=== PATIENT | female | born 2000 | race Caucasian/White ===

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

== ENCOUNTER 2019-02-02 17:06 | Emergency (ER) | payer OTHER ==
--- NOTE | 2019-02-02 17:31 | ERPHSYRPT ---
- History of Present Illness Time Seen by Provider: 02/02/19 17:20 Source: patient, family Exam Limitations: no limitations Patient Subjective Stated Complaint: Pt began having pain when she breathed about 10 minutes ago and so she rushed to the hospital, reports having pain in medial abdomen just below umbilicus and radiates to the ULQ, Pt is 17 weeks Triage Nursing Assessment: Pt presents holding abdomen and crying, appears to be in pain, tachycardic, all other vitals wnl, rates pain 8/10, pain with palpatation by umbilicus only, bowel sounds heard x4, skin NWD, denies vaginal bleeding Physician History: 19 y/o white female who is 13 weeks with u/s verified single intrauterine fetus presents with sudden onset of abd pain described as sharp, above the umbilicus and radiates to left upper quad. no dysuria. no flank pain. pt has had occass thick watery discharge without odor. pt denies abd trauma. pt denies vaginal bleeding Timing/Duration: today, worse Quality: sharpness, stabbing Onset Location: periumbilical Pain Radiation: other (towards left upper quadrant) Severity of Pain-Max: moderate Severity of Pain-Current: moderate Prior abdominal problems: none Sexual intercourse history: non-contributory Modifying Factors: Improves With: nothing Associated Symptoms: , No nausea, No vomiting, No dysuria, No loss of bladder control, No lower back pain, No vaginal discharge, No vaginal fluid leakage Allergies/Adverse Reactions: No Known Drug Allergies Allergy (Verified 09/22/18 13:01) Home Medications: Vits W-Ca,Fe,FA(<1Mg) [] 1 each PO DAILY 02/02/19 [History] Hx Tetanus, Diphtheria Vaccination/Date Given: Yes Hx Influenza Vaccination/Date Given: Yes (March 2018) Hx Pneumococcal Vaccination/Date Given: No - Review of Systems Constitutional: No Symptoms Eyes: No Symptoms Ears, Nose, & Throat: No Symptoms Respiratory: No Symptoms Cardiac: No Symptoms Abdominal/Gastrointestinal: Abdominal Pain (supraumbilical midline) Genitourinary Symptoms: No Symptoms, No Dysuria, No Hematuria, No Flank Pain, No Vaginal Bleeding, No Vaginal Discharge Musculoskeletal: No Symptoms Skin: No Symptoms Neurological: No Symptoms Psychological: No Symptoms Endocrine: No Symptoms Hematologic/Lymphatic: No Symptoms Immunological/Allergic: No Symptoms All Other Systems: Reviewed and Negative - Past Medical History Pertinent Past Medical History: Yes Neurological History: No Pertinent History ENT History: No Pertinent History Cardiac History: No Pertinent History Respiratory History: Asthma, Pneumonia Endocrine Medical History: No Pertinent History Musculoskeletal History: No Pertinent History GI Medical History: No Pertinent History History: No Pertinent History Psycho-Social History: No Pertinent History Female Reproductive Disorders: No Pertinent History - Past Surgical History Past Surgical History: Yes Neuro Surgical History: No Pertinent History Cardiac: No Pertinent History Respiratory: No Pertinent History Gastrointestinal: No Pertinent History Genitourinary: No Pertinent History Musculoskeletal: No Pertinent History Female Surgical History: No Pertinent History Other Surgical History: TONSILS/ADENOIDS, BILATERAL EAR TUBES - Social History Smoking Status: Never smoker Exposure to second hand smoke: No Drug Use: none Patient Lives Alone: No - Female History Hx Now: Yes Expected Date of Delivery: 08/14/19 - Nursing Vital Signs Nursing Vital Signs: Initial Vital Signs Temperature 97.8 F 02/02/19 17:11 Pulse Rate 101 H 02/02/19 17:11 Blood Pressure 130/60 02/02/19 17:11 O2 Sat by Pulse Oximetry 100 02/02/19 17:11 Pain Scale Pain Intensity 8 - Physical Exam General Appearance: mild distress, alert, anxiety Eye Exam: PERRL/EOMI, eyes nml inspection Ears, Nose, Throat Exam: normal ENT inspection, moist mucous membranes Neck Exam: normal inspection, non-tender, supple, full range of motion Respiratory Exam: normal breath sounds, lungs clear, airway intact, No chest tenderness, No respiratory distress Cardiovascular Exam: regular rate/rhythm, normal heart sounds, normal peripheral pulses Gastrointestinal/Abdomen Exam: soft, normal bowel sounds, tenderness (umbilicus) , No guarding, No rebound Pelvic Exam: not done Rectal Exam: not done Back Exam: normal inspection, normal range of motion, No CVA tenderness, No vertebral tenderness Extremity Exam: normal inspection, normal range of motion, pelvis stable Neurologic Exam: alert, oriented x 3, 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, 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, other (tearful) Skin Exam: normal color, warm, dry Lymphatic Exam: No adenopathy SpO2 Interpretation: normal SpO2: 100 O2 Delivery: Room Air - Course Nursing assessment & vital signs reviewed: Yes Ordered Tests: Active Orders 24 hr Category Date Time Status CULTURE,URINE Stat Lab 02/02/19 17:49 Received UA W/RFX UR CULTURE Stat Lab 02/02/19 17:49 Completed Medication Summary Discontinued Medications Generic Name Dose Route Start Last Admin Trade Name Noe PRRadha Reason Stop Dose Admin Acetaminophen 650 mg 02/02/19 18:30 Tylenol 325 Mg PO 02/02/19 18:31 STAT STA Acetaminophen Confirm 02/02/19 18:33 Tylenol 325 Mg Administered 02/02/19 18:34 Dose 650 mg .ROUTE .STK-MED ONE Ceftriaxone Sodium 1,000 mg 02/02/19 18:31 Rocephin 1000 Mg Inj IM 02/02/19 18:32 STAT ONE Ceftriaxone Sodium Confirm 02/02/19 18:33 Rocephin 1000 Mg Inj Administered 02/02/19 18:34 Dose 1,000 mg .ROUTE .STK-MED ONE Lab/Rad Data: Laboratory Results 02/02/19 Range/Units 17:49 Urine Color SAMANTHA (YELLOW) Urine Appearance CLOUDY (CLEAR) Urine pH 6.0 (5-6) Ur Specific [place] 1.025 (1.005-1.025) Urine Protein NEGATIVE (Negative) Urine Ketones NEGATIVE (NEGATIVE) Urine Blood NEGATIVE (0-5) Alcides/ul Urine Nitrite POSITIVE (NEGATIVE) Urine Bilirubin NEGATIVE (NEGATIVE) Urine Urobilinogen NEGATIVE (0-1) mg/dL Ur Leukocyte Esterase SMALL (NEGATIVE) Urine WBC (Auto) 11-15 (0-5) /HPF Urine RBC (Auto) NONE (0-2) /HPF U Epithel Cells (Auto) RARE (FEW) /HPF Urine Bacteria (Auto) FEW (NEGATIVE) /HPF Urine Mucus (Auto) MANY (NEGATIVE) /HPF Urine Culture Reflexed YES (NO) Urine Glucose NEGATIVE (NEGATIVE) mg/dL - Progress Progress: improved, re-examined Air Movement: good Progress Note: 02/02/19 18:37 pt states pain sig improved without tx. pain now dull in left rib area. Blood Culture(s) Obtained: No Antibiotics given: Yes Counseled pt/family regarding: lab results, diagnosis, need for follow-up - Departure Departure Disposition: Home Clinical Impression: UTI (urinary tract infection) Condition: Stable Critical Care Time: No Referrals: MAGNO LEO MD [Primary Care Provider] - Additional Instructions: drink plenty of fluids. use tylenol for pain. follow up with dr. leo or motor and controls tester tomorrow. return to ED tonight if symptoms recur and does not improve with tylenol Prescriptions: Cephalexin Mh 500 mg [Keflex 500 mg] 500 mg PO TID #21 capsule
[2019-02-02 18:12] LABS: Appearance CLOUDY (CLEAR); Bacteria FEW /HPF (NEGATIVE); Bilirubin NEGATIVE (NEGATIVE); Blood NEGATIVE Ery/ul (0-5); Epithelial Cells RARE /HPF (FEW); Glucose NEGATIVE (NEGATIVE); Ketones NEGATIVE (NEGATIVE); Leukocyte Esterase SMALL (NEGATIVE); Mucus MANY /HPF (NEGATIVE); Nitrite POSITIVE (NEGATIVE); Protein,Urine Dip NEGATIVE (Negative); Specific Gravity 1.025 (1.005-1.025); Urobilinogen NEGATIVE mg/dL (0-1)
[2019-02-02] MEDS ORDERED: TYLENOL 325 MG PO STA (18:30)
[2019-02-02] MEDS ORDERED: Rocephin 1000 MG INJ IM ONE (18:31)
[2019-02-02] MEDS ORDERED: Rocephin 1000 MG INJ ONE (18:33)
[2019-02-02] MEDS ORDERED: TYLENOL 325 MG ONE (18:33)
[2019-02-02 19:11] VITALS: BP 101/68; PULSE 96; O2SAT 98
== END 2019-02-02 19:16 | disposition home or self-care (01) ==
LOC: ED 17:06
DX: N39.0 Urinary tract infection, site not specified (principal)
CPT/HCPCS: 81001; 87077; 87086; 87186; 96372; 99284; J0696; A9270-GY

== ENCOUNTER 2019-12-06 18:49 | Emergency (ER) | payer OTHER ==
[2019-12-06 19:22] VITALS: O2SAT 99
--- NOTE | 2019-12-06 19:28 | ERPHSYRPT ---
- History of Present Illness Time Seen by Provider: 12/06/19 19:15 Source: patient, family Exam Limitations: no limitations Patient Subjective Stated Complaint: pt states a wood door fell on her head. states she did lose consciousness for unknown amt of time. states she has been dizzy and nauseous since then. Triage Nursing Assessment: pt alert and oriented, answers questions approp. respirations nonlabored with lungs cta. pt ambulatory with steady gait noted. skin warm and dry. abrasion noted to lt head with no bleeding ntoed at this time. pupils equal and reactive. bilat upper and lower ext strength equal and wnl. Physician History: This is a 19-year-old white female who approximately 1 hour prior to evaluation was hit by a door that was not attached. Patient unable to give me any specifics. She stated that she did lose consciousness. Patient stated that she was alone. She has felt dizzy and nauseous ever since her injury. Patient has no visual abnormalities. She has not vomited. Occurred: just prior to arrival Severity: mild Head Injury Location: frontal (Left), parietal Method of Injury: direct blow (4) Loss of Consciousness: brief (seconds) (Per patient) Associated Symptoms: nausea, other (Dizzy she is she is), No vomiting Allergies/Adverse Reactions: No Known Drug Allergies Allergy (Verified 09/22/18 13:01) Home Medications: Vits W-Ca,Fe,FA(<1Mg) [] 1 each PO DAILY 02/02/19 [History] Hx Tetanus, Diphtheria Vaccination/Date Given: Yes (2018) Hx Influenza Vaccination/Date Given: Yes Hx Pneumococcal Vaccination/Date Given: No Immunizations Up to Date: Yes Travel Risk - International Travel Have you traveled outside of the country in past 3 weeks: No - Coronavirus Screening Are you exhibiting any of the following symptoms?: No Close contact with a COVID-19 positive Pt in past 14-21 Days: No - Review of Systems Constitutional: No Symptoms Eyes: No Symptoms Ears, Nose, & Throat: No Symptoms Respiratory: No Symptoms Cardiac: No Symptoms Abdominal/Gastrointestinal: Nausea, No Abdominal Pain, No Vomiting, No Diarrhea Genitourinary Symptoms: No Symptoms Musculoskeletal: No Symptoms Skin: No Symptoms Neurological: Dizziness Psychological: No Symptoms Endocrine: No Symptoms Hematologic/Lymphatic: No Symptoms Immunological/Allergic: No Symptoms All Other Systems: Reviewed and Negative - Past Medical History Pertinent Past Medical History: Yes Neurological History: No Pertinent History ENT History: No Pertinent History Cardiac History: No Pertinent History Respiratory History: Asthma, Pneumonia Endocrine Medical History: No Pertinent History Musculoskeletal History: No Pertinent History GI Medical History: No Pertinent History History: No Pertinent History Psycho-Social History: No Pertinent History Female Reproductive Disorders: No Pertinent History - Past Surgical History Past Surgical History: Yes Neuro Surgical History: No Pertinent History Cardiac: No Pertinent History Respiratory: No Pertinent History Gastrointestinal: No Pertinent History Genitourinary: No Pertinent History Musculoskeletal: No Pertinent History Female Surgical History: No Pertinent History Other Surgical History: TONSILS/ADENOIDS, BILATERAL EAR TUBES - Social History Smoking Status: Never smoker Exposure to second hand smoke: No Drug Use: none Patient Lives Alone: Yes - Female History Hx Last Menstrual Period: post - breast feeding Hx Now: No - Nursing Vital Signs Nursing Vital Signs: Initial Vital Signs Temperature 98.0 F 12/06/19 19:07 Pulse Rate 80 12/06/19 19:07 Respiratory Rate 18 12/06/19 19:07 Blood Pressure 118/68 12/06/19 19:07 O2 Sat by Pulse Oximetry 99 12/06/19 19:07 Pain Scale Pain Intensity 8 - Vic Coma Score Best Eye Response ([place]): (4) open spontaneously Best Verbal Response (Vic): (5) oriented Best Motor Response (Vic): (6) obeys commands [place] Total: 15 - Physical Exam General Appearance: no apparent distress Head Injury: tenderness (Mild tenderness at the abrasion site in the frontoparietal region on the left side) Eye Exam: bilateral eye: normal inspection, PERRL, EOMI ENT Exam: airway nml, nml ext.inspection, No evidence of ENT injury Neck Exam: supple, trachea midline, full range of motion, normal alignment, normal inspection Cardiovascular/Respiratory Exam: chest non-tender Gastrointestinal/Abdominal Exam: non tender Pelvic Exam: not done Rectal Exam: not done Extremity Exam: non-tender, normal range of motion, normal inspection Mental Status Exam: alert, oriented x 3, 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 Exam: normal hearing, normal speech, PERRL, tongue midline Coordination/Gait Exam: normal finger to nose, normal gait, normal cerebellar function Motor/Sensory Exam: no motor deficit, no sensory deficit, no pronator drift Skin Exam: abrasion (Frontoparietal region left side) SpO2 Interpretation: normal SpO2: 99 O2 Delivery: Room Air - Course Nursing assessment & vital signs reviewed: Yes Ordered Tests: Active Orders 24 hr Category Date Time Status HEAD WITHOUT CONTRAST [CT] Stat Exams 12/06/19 19:18 Taken - Progress Progress: unchanged, re-examined Progress Note: 12/06/19 20:05 CAT scan of the head reveals no acute intracranial abnormality Counseled pt/family regarding: diagnosis, need for follow-up, rad results - Departure Departure Disposition: Home Clinical Impression: Head injury, Scalp abrasion Condition: Stable Critical Care Time: No Referrals: MAGNO TIRADO MD [Primary Care Provider] - Additional Instructions: Use Tylenol for pain. Keep your abrasion site clean with soap and water. May apply antibiotic ointment of choice to area daily after washing with soap and water. Follow-up with your primary care physician for persistent symptoms. Return to the emergency department if your symptoms worsen. Forms: Work/School Release Form
[2019-12-06] MEDS ORDERED: TYLENOL 325 MG ONE (20:09)
[2019-12-06] MEDS ORDERED: TYLENOL 325 MG PO STA (20:09)
[2019-12-06 20:33] VITALS: BP 124/68; PULSE 74
--- NOTE | 2019-12-07 08:58 | XRAY ---
Exam: CT of the head without IV contrast from 12/06/2019. CTDI: 53.92 mGy Comparison: CT of the head without IV contrast from 11/05/2018. Indication: 19-year-old female with head injury. Technique: Non-IV contrast axial images were obtained through the brain. Reconstructed coronal and sagittal images were created and reviewed. Findings: The ventricles appear unremarkable. No focal mass effect or midline shift is seen. The jefferson matter-white matter interfaces appear unremarkable. There is no evidence of acute intracranial bleed or abnormal extra-axial fluid collection. Some beam hardening artifact is seen overlying the lateral aspect of the left temporal lobe representing no change (i.e. insignificant). No abnormal low-attenuation brain lesions are seen to suggest infarct or focal edema. The cortical sulci and basilar cisterns appear unremarkable. The calvarium of the skull appears intact without evidence of fracture. Some minimal scattered mucosal thickening is seen within the ethmoid sinuses which in retrospect represents no significant change. No air-fluid levels are seen. The mastoids reveal normal aerated air cells without effusion. The middle ear cavities appear grossly unremarkable. Impression: 1. No acute intracranial bleed or other acute intracranial process is seen, no change from 11/05/2018. 2. Minimal scattered mucosal thickening is seen within the ethmoid sinus complex, no change in retrospect. No paranasal sinus air-fluid levels are seen.
== END 2019-12-06 20:28 | disposition home or self-care (01) ==
LOC: ED 18:49
DX: S00.01XA Abrasion of scalp, initial encounter (principal); S00.03XA Contusion of scalp, initial encounter; W22.8XXA Striking against or struck by other objects, initial encounter; R11.0 Nausea; R42 Dizziness and giddiness
CPT/HCPCS: 70450; 99283; A9270-GY

== ENCOUNTER 2020-08-23 05:47 | Day surgery (SDC) | payer OTHER ==
[2020-08-23] MEDS ORDERED: Lactated Ringers 1,000 ML IV SCH (06:00)
[2020-08-23] MEDS ORDERED: DIPRIVAN 200 MG/20 ML IV ONE ×3 (08:04→08:22)
[2020-08-23] MEDS ORDERED: Versed 2 MG/2 ML Injection ONE (08:04)
[2020-08-23] MEDS ORDERED: Xylocaine-Mpf 2% 5 Ml Vial ONE (08:13)
[2020-08-23 09:03] VITALS: O2SAT 100
--- NOTE | 2020-08-23 11:07 | OP ---
SURGERY DATE/TIME: 08/23/2020 0803 PREOPERATIVE DIAGNOSIS: Iron deficiency anemia. POSTOPERATIVE DIAGNOSES: 1) Normal EGD. 2) Normal colon. PROCEDURES: 1) EGD. 2) Colonoscopy. SURGEON: Robert Foss M.D. ANESTHESIA: MAC by Isak Quesada CRNA. ESTIMATED BLOOD LOSS: None. SPECIMENS: None. DESCRIPTION OF PROCEDURE: After informed written consent was obtained, the patient was taken to the endoscopy suite. She was placed in left lateral decubitus position and a bite block inserted. Anesthesia was titrated to desired level of consciousness. The endoscope was inserted in the posterior oropharynx and under direct visualization the esophagus was traversed. The esophageal mucosa had a normal appearance. There were no abnormalities of the gastroesophageal junction. Upon entering the stomach there was normal rugated gastric mucosa free of any lesions or defects. The pylorus was traversed and the first and second portions of the duodenum were within normal limits. Upon withdrawal all mucosal structures were carefully inspected and noted to be within normal limits. The scope was removed and the scopes were switched. Digital rectal exam was performed and showed normal sphincter tone and no internal lesions. The scope was inserted in the rectum and sequentially the entire colonic mucosa was traversed. The level of the cecum was reached and verified with direct visualization of the ileocecal valve. Upon withdrawal careful mucosal inspection revealed no gross abnormalities. Retroflexion was performed prior to withdrawal and showed no internal lesions. The scope was removed. The patient was transferred to the recovery room in good condition.
[2020-08-23 11:16] VITALS: BP 112/67; PULSE 90
== END 2020-08-23 09:50 | disposition home or self-care (01) ==
LOC: SDC 05:47
PROVIDERS: ATTEND Family Medicine
DX: D50.9 Iron deficiency anemia, unspecified (principal)
CPT/HCPCS: 84703; J2250; J2704

== ENCOUNTER 2021-01-05 16:02 | Emergency (ER) | payer OTHER ==
[2021-01-05 16:25] VITALS: O2SAT 100
[2021-01-05 16:39] LABS: Absolute Neutrophil Ct (ANC) 3.58 (1.4-6.9); BASOPHIL % 0.5 % (0.0-0.4); Basophil (Absolute #) 0.04 (0-0.4); Eosinophil (Absolute #) 0.22 (0-0.5); Hematocrit 43.5 % (35-47); Hemoglobin 13.9 gm/dl (12.0-16.0); Lymphocyte (Absolute #) 3.13 (1.0-4.6); Lymphocytes % 42.1 % (24.0-44.0); Mean Cell Volume 82.2 fl (78-100); Mean Corpuscular Hemoglobin 26.3 pg (26-32); Mean Platelet Volume 9.6 fl (7.5-11.0); Monocyte (Absolute #) 0.47 (0.0-1.3); Monocytes % 6.3 % (0.0-12.0); Neutrophil % 48.1 % (36.0-66.0); Platelet Count 217 K/mm3 (150-450); Red Blood Count 5.29 M/mm3 (4.1-5.4); Red Cell Distribution Width 15.7 % (11.5-14.0); White Blood Count 7.4 K/mm3 (4.0-10.5)
[2021-01-05 17:07] LABS: ALBUMIN 4.6 g/dL (3.5-5.0); ALKALINE PHOSPHATASE 74 U/L (38-126); BLOOD UREA NITROGEN 10 mg/dL (7-17); CHLORIDE 101 mmol/L (98-107); Calcium 9.4 mg/dL (8.4-10.2); Carbon Dioxide 28 mmol/L (22-30); Creatinine 1 0.78 mg/dL (0.52-1.04); EST GLOMERULAR FILTRATION RATE > 60.0 ML/MIN; Glucose 91 mg/dL (74-106); HCG, Quantitative (Inhouse) 61.38 mIU/ml; SGOT/AST 24 U/L (14-36); SGPT/ALT 14 U/L (0-35); SODIUM 139 mmol/L (137-145); Total Protein 7.4 g/dL (6.3-8.2)
[2021-01-05 17:11] VITALS: BP 116/79
--- NOTE | 2021-01-05 17:45 | ERPHSYRPT ---
- History of Present Illness Time Seen by Provider: 01/05/21 16:50 Patient Subjective Stated Complaint: abd cramping, heavy vag bleeding x 1 hr Triage Nursing Assessment: pt to ED c/o vaginal bleeding and abd cramping x 1 hr. pt reports soaking through after pad, and pants within 1 hr. blood also reported to have ran down her legs bilaterally. reports "pouring" when she stood up. rates 3/10 pain now in cramping sensation. Physician History: Patient is a 20-year-old 3 para 2 Ab0 with a positive home test this morning who presents with vaginal bleeding and cramping. She did soak through her clothes. Timing/Duration: today Activites at Onset: none Quality: cramping Onset Location: suprapubic Pain Radiation: none Severity of Pain-Max: moderate Severity of Pain-Current: moderate Prior abdominal problems: none Modifying Factors: Improves With: nothing Associated Symptoms: denies symptoms Allergies/Adverse Reactions: No Known Drug Allergies Allergy (Verified 11/06/20 08:48) Home Medications: Amlodipine Besylate 5 mg [Norvasc 5 mg] 5 mg PO DAILY 08/23/20 [History] Etonogestrel/Ethinyl Estradiol [Nuvaring Vaginal Ring] 1 each VG UD 08/23/20 [History] Ferrous Sulfate 325 mg PO TID 08/23/20 [History] Buspirone HCl 5 mg [Buspar 5 mg] 5 mg PO BID 01/05/21 [History] Escitalopram Oxalate 10 mg [Lexapro 10 MG] 10 mg PO DAILY 01/05/21 [History] Hx Tetanus, Diphtheria Vaccination/Date Given: Yes (2018) Hx Influenza Vaccination/Date Given: Yes Hx Pneumococcal Vaccination/Date Given: No Travel Risk - International Travel Have you traveled outside of the country in past 3 weeks: No - Coronavirus Screening Are you exhibiting any of the following symptoms?: No Close contact with a COVID-19 positive Pt in past 14-21 Days: No - Vaccine Status Have you recieved a Covid-19 vaccination: Yes Yacht Hand: Moderna - Vaccination Dates Date of 2cond Vaccination (if applicable): August - Review of Systems Constitutional: No Fever, No Chills Eyes: No Symptoms Ears, Nose, & Throat: No Symptoms Respiratory: No Cough, No Dyspnea Cardiac: No Chest Pain, No Edema, No Syncope Abdominal/Gastrointestinal: No Abdominal Pain, No Nausea, No Vomiting, No Di arrhea Genitourinary Symptoms: Vaginal Bleeding, No Dysuria Musculoskeletal: No Back Pain, No Neck Pain Skin: No Rash Neurological: No Dizziness, No Focal Weakness, No Sensory Changes Psychological: No Symptoms Endocrine: No Symptoms All Other Systems: Reviewed and Negative - Past Medical History Pertinent Past Medical History: Yes Neurological History: No Pertinent History ENT History: No Pertinent History Cardiac History: No Pertinent History Respiratory History: Asthma, Pneumonia Endocrine Medical History: No Pertinent History Musculoskeletal History: No Pertinent History GI Medical History: No Pertinent History History: No Pertinent History Psycho-Social History: Anxiety Female Reproductive Disorders: No Pertinent History Other Medical History: raynauds, - Past Surgical History Past Surgical History: Yes Neuro Surgical History: No Pertinent History Cardiac: No Pertinent History Respiratory: No Pertinent History Gastrointestinal: No Pertinent History Genitourinary: No Pertinent History Musculoskeletal: No Pertinent History Female Surgical History: No Pertinent History Other Surgical History: TONSILS/ADENOIDS, BILATERAL EAR TUBES - Social History Smoking Status: Never smoker Exposure to second hand smoke: No Drug Use: none Patient Lives Alone: No - Female History Hx Last Menstrual Period: 2 months ago Hx Now: Yes (+ test today) - Nursing Vital Signs Nursing Vital Signs: Initial Vital Signs Temperature 98.2 F 01/05/21 16:14 Pulse Rate 94 H 01/05/21 16:14 Respiratory Rate 18 01/05/21 16:14 Blood Pressure 129/76 01/05/21 16:14 O2 Sat by Pulse Oximetry 100 01/05/21 16:14 Pain Scale Pain Intensity 3 - Physical Exam General Appearance: mild distress, alert Eye Exam: PERRL/EOMI, eyes nml inspection Ears, Nose, Throat Exam: normal ENT inspection, TMs normal, pharynx normal, moist mucous membranes Neck Exam: normal inspection, non-tender, supple, full range of motion Respiratory Exam: normal breath sounds, lungs clear, No respiratory distress Cardiovascular Exam: regular rate/rhythm, normal heart sounds, normal peripheral pulses Gastrointestinal/Abdomen Exam: soft, No tenderness, No mass Pelvic Exam: vaginal bleeding (Dental bleeding at the time of the pelvic exam cervix is long and closed uterus is normal size.), No adnexal mass, No mass Back Exam: normal inspection, normal range of motion, No CVA tenderness, No vertebral tenderness Extremity Exam: normal inspection, normal range of motion, pelvis stable Neurologic Exam: alert, oriented x 3, 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, 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, normal mood/affect, sensation nml, No motor deficits Skin Exam: normal color, warm, dry Lymphatic Exam: No adenopathy SpO2: 100 - Course Nursing assessment & vital signs reviewed: Yes Ordered Tests: Active Orders 24 hr Category Date Time Status Heart Tones-ED STAT Care 01/05/21 16:22 Active CBC W DIFF Stat Lab 01/05/21 16:28 Completed CMP Stat Lab 01/05/21 16:28 Completed HCG, Quantitative (Inhouse) Stat Lab 01/05/21 16:28 Completed Lab/Rad Data: Laboratory Result Diagrams 01/05/21 16:28 01/05/21 16:28 Laboratory Results 01/05/21 01/05/21 Range/Units 16:28 16:28 WBC 7.4 (4.0-10.5) K/mm3 RBC 5.29 (4.1-5.4) M/mm3 Hgb 13.9 (12.0-16.0) gm/dl Hct 43.5 (35-47) % MCV 82.2 (78-100) fl MCH 26.3 (26-32) pg MCHC 32.0 (32-36) g/dl RDW 15.7 H (11.5-14.0) % Plt Count 217 (150-450) K/mm3 MPV 9.6 (7.5-11.0) fl Gran % 48.1 (36.0-66.0) % Eos # (Auto) 0.22 (0-0.5) Absolute Lymphs (auto) 3.13 (1.0-4.6) Absolute Monos (auto) 0.47 (0.0-1.3) Lymphocytes % 42.1 (24.0-44.0) % Monocytes % 6.3 (0.0-12.0) % Eosinophils % 3.0 (0.00-5.0) % Basophils % 0.5 (0.0-0.4) % Absolute Granulocytes 3.58 (1.4-6.9) Basophils # 0.04 (0-0.4) Sodium 139 (137-145) mmol/L Potassium 4.0 (3.5-5.1) mmol/L Chloride 101 (98-107) mmol/L Carbon Dioxide 28 (22-30) mmol/L Anion Gap 13.0 (5-15) MEQ/L BUN 10 (7-17) mg/dL Creatinine 0.78 (0.52-1.04) mg/dL Estimated GFR > 60.0 ML/MIN Glucose 91 (74-106) mg/dL Calcium 9.4 (8.4-10.2) mg/dL Total Bilirubin 0.40 (0.2-1.3) mg/dL AST 24 (14-36) U/L ALT 14 (0-35) U/L Alkaline Phosphatase 74 (38-126) U/L Serum Total Protein 7.4 (6.3-8.2) g/dL Albumin 4.6 (3.5-5.0) g/dL Beta HCG, Quant 61.38 mIU/ml - Progress Air Movement: good Blood Culture(s) Obtained: No Antibiotics given: No - Departure Departure Disposition: Home Clinical Impression: Early stage of Condition: Stable Critical Care Time: No Referrals: MAGNO TIRADO MD [Primary Care Provider] - Instructions: Threatened Miscarriage (DC) Additional Instructions: Additional instructions are for the patient to follow-up with her primary care or DIRECTOR OF WEB MARKETING in 72 hours for repeat hCG
[2021-01-05 17:53] VITALS: PULSE 79
== END 2021-01-05 18:03 | disposition home or self-care (01) ==
LOC: ED 16:02
DX: Z33.1 Pregnant state, incidental (principal); N93.9 Abnormal uterine and vaginal bleeding, unspecified
CPT/HCPCS: 36415; 80053; 84702; 85025; 99284

== ENCOUNTER 2021-01-18 16:05 | Emergency (ER) | payer OTHER ==
--- NOTE | 2021-01-18 16:34 | ERPHSYRPT ---
- History of Present Illness Time Seen by Provider: 01/18/21 16:25 Source: patient Exam Limitations: no limitations Patient Subjective Stated Complaint: C/O sharp, cramping pain to lower abdomen/pelvic area. States had heavy vaginal bleeding earlier today at work soaking a pad with bright red blood in a little over an hours time. Bleeding has slowed at this time and is now just spotting. Denies any clots in the bleeding. She is pregant but is unsure of how far along she is/due date. Triage Nursing Assessment: Abdomen is soft. No changes in pain level when palpated. Urine is clear when voiding upon arrival. Sitting in bed using touch screen phone during intake assessment. Denies sexual intercourse for the past few weeks. Physician History: This is a 21-year-old white female who is but is unsure of the exact dates. She thinks she might be 11 weeks along. Patient is being followed by Dr. Tirado. Patient had significant vaginal bleeding earlier this morning and now it is vaginal spotting. However there is some cramping pain present. She had no flank pain. She has no dysuria or hematuria. She did not have sexual intercourse last night. She has had no nausea vomiting or diarrhea. She has no chest pain or shortness of breath. Patient has been having beta hCGs performed and she had 1 performed yesterday and is over 10,000. Her serial beta hCGs have been rising. Timing/Duration: today Activites at Onset: none Quality: cramping Onset Location: suprapubic Pain Radiation: none Severity of Pain-Max: mild Severity of Pain-Current: mild Prior abdominal problems: none Sexual intercourse history: non-contributory Modifying Factors: Improves With: nothing Associated Symptoms: vaginal discharge (Bleeding/spotting) Allergies/Adverse Reactions: No Known Drug Allergies Allergy (Verified 01/18/21 16:20) Home Medications: Amlodipine Besylate 5 mg [Norvasc 5 mg] 5 mg PO DAILY 08/23/20 [History] Ferrous Sulfate 325 mg PO TID 08/23/20 [History] Vits W-Ca,Fe,FA(<1Mg) [] 1 tablet PO DAILY 01/18/21 [History] Hx Tetanus, Diphtheria Vaccination/Date Given: Yes (2019) Hx Influenza Vaccination/Date Given: Yes Hx Pneumococcal Vaccination/Date Given: No Travel Risk - International Travel Have you traveled outside of the country in past 3 weeks: No - Coronavirus Screening Are you exhibiting any of the following symptoms?: No Close contact with a COVID-19 positive Pt in past 14-21 Days: No - Vaccine Status Have you recieved a Covid-19 vaccination: No 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 - Vaccination Dates Date of 2cond Vaccination (if applicable): August - Review of Systems Constitutional: No Symptoms Eyes: No Symptoms Ears, Nose, & Throat: No Symptoms Respiratory: No Symptoms Cardiac: No Symptoms Abdominal/Gastrointestinal: Abdominal Pain (Suprapubic crampingmild) Genitourinary Symptoms: No Symptoms, Vaginal Bleeding Musculoskeletal: No Symptoms Skin: No Symptoms Neurological: No Symptoms Psychological: No Symptoms Endocrine: No Symptoms Hematologic/Lymphatic: No Symptoms Immunological/Allergic: No Symptoms All Other Systems: Reviewed and Negative - Past Medical History Pertinent Past Medical History: Yes Neurological History: No Pertinent History ENT History: No Pertinent History Cardiac History: No Pertinent History Respiratory History: Asthma, Pneumonia Endocrine Medical History: No Pertinent History Musculoskeletal History: No Pertinent History GI Medical History: No Pertinent History History: No Pertinent History Psycho-Social History: Anxiety Female Reproductive Disorders: No Pertinent History Other Medical History: raynauds, - Past Surgical History Past Surgical History: Yes Neuro Surgical History: No Pertinent History Cardiac: No Pertinent History Respiratory: No Pertinent History Gastrointestinal: No Pertinent History Genitourinary: No Pertinent History Musculoskeletal: No Pertinent History Female Surgical History: No Pertinent History Other Surgical History: TONSILS/ADENOIDS, BILATERAL EAR TUBES - Social History Smoking Status: Never smoker Exposure to second hand smoke: No Drug Use: none Patient Lives Alone: No - Female History Hx Last Menstrual Period: November 05, 2020 Hx Now: Yes Gestational Age: unknown - Nursing Vital Signs Nursing Vital Signs: Initial Vital Signs Temperature 98.5 F 01/18/21 16:12 Pulse Rate 110 H 01/18/21 16:12 Respiratory Rate 18 01/18/21 16:12 Blood Pressure 131/83 01/18/21 16:12 O2 Sat by Pulse Oximetry 99 01/18/21 16:12 Pain Scale Pain Intensity 8 - Physical Exam General Appearance: no apparent distress, alert, anxiety, thin Eye Exam: PERRL/EOMI, eyes nml inspection Ears, Nose, Throat Exam: normal ENT inspection, moist mucous membranes Neck Exam: normal inspection, non-tender, supple, full range of motion Respiratory Exam: normal breath sounds, lungs clear, airway intact, No chest tenderness, No respiratory distress Cardiovascular Exam: tachycardia Gastrointestinal/Abdomen Exam: soft, normal bowel sounds, tenderness (Mild suprapubic), No guarding, No rebound Pelvic Exam: not done Rectal Exam: not done Back Exam: normal inspection, normal range of motion, No CVA tenderness Extremity Exam: normal inspection, normal range of motion Neurologic Exam: alert, oriented x 3, cooperative, mechanical maintenance engineer II-XII nml as tested, normal mood/affect, nml cerebellar function, nml station & gait, sensation nml Skin Exam: normal color, warm, dry Lymphatic Exam: No adenopathy SpO2 Interpretation: normal SpO2: 99 O2 Delivery: Room Air - Course Nursing assessment & vital signs reviewed: Yes Ordered Tests: Active Orders 24 hr Category Date Time Status OB <14 WKS 1ST GESTATION [US] Stat Exams 01/18/21 16:35 Taken UA W/RFX UR CULTURE Stat Lab 01/18/21 16:38 Completed Lab/Rad Data: Laboratory Results 01/18/21 Range/Units 16:38 Urine Color COLORLESS (YELLOW) Urine Appearance CLEAR (CLEAR) Urine pH 7.0 (5-6) Ur Specific [place] 1.003 (1.005-1.025) Urine Protein NEGATIVE (Negative) Urine Ketones NEGATIVE (NEGATIVE) Urine Blood NEGATIVE (0-5) Alcides/ul Urine Nitrite NEGATIVE (NEGATIVE) Urine Bilirubin NEGATIVE (NEGATIVE) Urine Urobilinogen NEGATIVE (0-1) mg/dL Ur Leukocyte Esterase SMALL (NEGATIVE) Urine WBC (Auto) 3-5 (0-5) /HPF Urine RBC (Auto) NONE SEEN (0-2) /HPF U Epithel Cells (Auto) NONE (FEW) /HPF Urine Bacteria (Auto) FEW (NEGATIVE) /HPF Urine Culture Reflexed NO (NO) Urine Glucose NEGATIVE (NEGATIVE) mg/dL - Progress Progress: improved, re-examined Air Movement: good Progress Note: 01/18/21 17:14 I reviewed the transvaginal ultrasound report that was performed on 01/10/2021. It showed thickened endometrial cavity with echogenic fluid collection. Possible blood products versus retained products of conception. No pole or heart tones appreciated on that study. 01/18/21 17:28 This patient had an first trimester obstetric ultrasound performed. She is at 5 weeks and 5 days. There is a gestational sac but there is a subchorionic hemorrhage that was significant and encompasses approximately half of the gestational sac. I contacted the patient's primary care physician, Dr. Tirado. He recommends pelvic/bedrest and to call his office on 01/21/2021. I told the patient to also call her water treatment plant engineer on 01/21/2021. She was told to return to the emergency department if she has having more significant bleeding vaginally. Blood Culture(s) Obtained: No Antibiotics given: No Discussed with : Kel Counseled pt/family regarding: lab results, diagnosis, rad results - Departure Departure Disposition: Home Clinical Impression: Vaginal bleeding, UTI (urinary tract infection), Subchorionic hemorrhage in first trimester Condition: Stable Critical Care Time: No Referrals: MAGNO TIRADO MD [Primary Care Provider] - Additional Instructions: Drink plenty of fluids. Take medication as prescribed. Follow-up with your primary doctor for further management. Prescriptions: Cephalexin Mh 500 mg [Keflex 500 mg] 500 mg PO TID #21 capsule
[2021-01-18 17:07] LABS: Appearance CLEAR (CLEAR); Bacteria FEW /HPF (NEGATIVE); Bilirubin NEGATIVE (NEGATIVE); Blood NEGATIVE Ery/ul (0-5); Glucose NEGATIVE (NEGATIVE); Ketones NEGATIVE (NEGATIVE); Leukocyte Esterase SMALL (NEGATIVE); Nitrite NEGATIVE (NEGATIVE); Protein,Urine Dip NEGATIVE (Negative); RBC NONE SEEN /HPF (0-2); Specific Gravity 1.003 (1.005-1.025); Urobilinogen NEGATIVE mg/dL (0-1)
[2021-01-18 17:34] VITALS: BP 124/72
[2021-01-18 17:53] VITALS: PULSE 116; O2SAT 97
--- NOTE | 2021-01-18 21:39 | XRAY ---
Indication: Vaginal bleeding and cramping. Two-dimensional transabdominal early OB ultrasound performed. Comparison: January 10, 2021. There is now a single intrauterine gestational sac with presence of a single pole and yolk sac. Mean sac diameter is 1.06 cm corresponding to 5 weeks 5 days. Mean crown-rump length is 0.23 cm corresponding to 5 weeks 5 days. No heart tones. There is also a new large subchorionic hemorrhage measuring at least 5 x 1 cm. Right ovary sonographically unremarkable. Left ovary not seen. No suspicious adnexal mass or free fluid. Impression: Single intrauterine measuring 5 weeks 5 days. Expected date confinement is September 15, 2021. No heart tones, possibly early . Correlate with serial beta-hCG and follow-up sonogram. Also large subchorionic hemorrhage. Comment: Preliminary interpretation was made by KAYLA. No critical discrepancy.
== END 2021-01-18 17:55 | disposition home or self-care (01) ==
LOC: ED 16:05
DX: O23.41 Unspecified infection of urinary tract in pregnancy, first trimester (principal); O20.9 Hemorrhage in early pregnancy, unspecified; Z3A.11 11 weeks gestation of pregnancy; R10.30 Lower abdominal pain, unspecified
CPT/HCPCS: 76801; 81001; 99283

== ENCOUNTER 2021-01-27 22:33 | Emergency (ER) | payer OTHER ==
[2021-01-27] MEDS ORDERED: Sodium Chloride 0.9% 1000 ML 1,000 ML IV STA (22:55)
[2021-01-27] MEDS ORDERED: TYLENOL 325 MG PO ONE (22:55)
--- NOTE | 2021-01-27 23:09 | ERPHSYRPT ---
- History of Present Illness Time Seen by Provider: 01/27/21 22:38 Source: patient Exam Limitations: no limitations Patient Subjective Stated Complaint: C/O cramping and heavy, active vaginal bleeding. States vomited X 3 today and last vomited driving to ER Triage Nursing Assessment: No clots in bright red vaginal bleeding. Bowel sounds X 4 quads. 7 weeks . Denies any sexual intercourse for approx the last month. Denies dysuria and flank pain. Physician History: 21 years old 3 para 2 at almost 7 weeks gestation presented in the ER with sudden onset pelvic cramping and vaginal bleeding bright red to dark color almost 1-1/2-hour prior to arrival. She went through multiple pads. Pain is dull cramping mild to moderate intensity without any significant aggravating or relieving factors. Some radiation to low back. Patient was recently seen and had UTI but not started taking antibiotics yet. Timing/Duration: hour(s) (1.5), sudden, worse Activites at Onset: rest Quality: cramping Onset Location: pelvic pain Pain Radiation: none Severity of Pain-Max: moderate Severity of Pain-Current: mild Prior abdominal problems: none Sexual intercourse history: non-contributory Modifying Factors: Improves With: nothing Associated Symptoms: denies symptoms Allergies/Adverse Reactions: No Known Drug Allergies Allergy (Verified 01/18/21 16:20) Home Medications: Vits W-Ca,Fe,FA(<1Mg) [] 1 tablet PO DAILY 01/18/21 [History] Buspirone HCl 5 mg [Buspar 5 mg] 10 mg PO BID 01/27/21 [History] Hx Tetanus, Diphtheria Vaccination/Date Given: Yes Hx Influenza Vaccination/Date Given: No Hx Pneumococcal Vaccination/Date Given: No Travel Risk - International Travel Have you traveled outside of the country in past 3 weeks: No - Coronavirus Screening Are you exhibiting any of the following symptoms?: No Close contact with a COVID-19 positive Pt in past 14-21 Days: No - Vaccine Status Have you recieved a Covid-19 vaccination: No 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 - Vaccination Dates Date of 2cond Vaccination (if applicable): August - Review of Systems Constitutional: No Symptoms Eyes: No Symptoms Ears, Nose, & Throat: No Symptoms Respiratory: No Symptoms Cardiac: No Symptoms Abdominal/Gastrointestinal: Abdominal Pain Genitourinary Symptoms: Vaginal Bleeding Musculoskeletal: No Symptoms Skin: No Symptoms Neurological: No Symptoms Psychological: No Symptoms Endocrine: No Symptoms Hematologic/Lymphatic: No Symptoms Immunological/Allergic: No Symptoms - Past Medical History Pertinent Past Medical History: Yes Neurological History: No Pertinent History ENT History: No Pertinent History Cardiac History: No Pertinent History Respiratory History: Asthma, Pneumonia Endocrine Medical History: No Pertinent History Musculoskeletal History: No Pertinent History GI Medical History: No Pertinent History History: No Pertinent History Psycho-Social History: Anxiety Female Reproductive Disorders: No Pertinent History Other Medical History: raynauds, - Past Surgical History Past Surgical History: Yes Neuro Surgical History: No Pertinent History Cardiac: No Pertinent History Respiratory: No Pertinent History Gastrointestinal: No Pertinent History Genitourinary: No Pertinent History Musculoskeletal: No Pertinent History Female Surgical History: No Pertinent History Other Surgical History: TONSILS/ADENOIDS, BILATERAL EAR TUBES - Social History Smoking Status: Never smoker Exposure to second hand smoke: No Drug Use: none Patient Lives Alone: No - Female History Hx Last Menstrual Period: Unknown Hx Now: Yes Expected Date of Delivery: 09/15/20 Gestational Age: 7 weeks - Nursing Vital Signs Nursing Vital Signs: Initial Vital Signs Temperature 98.7 F 01/27/21 22:42 Pulse Rate 96 H 01/27/21 22:42 Respiratory Rate 20 01/27/21 22:42 Blood Pressure 121/70 01/27/21 22:42 O2 Sat by Pulse Oximetry 98 01/27/21 22:42 Pain Scale Pain Intensity 5 - Physical Exam General Appearance: no apparent distress, alert Eye Exam: eyes nml inspection Ears, Nose, Throat Exam: normal ENT inspection Neck Exam: normal inspection, full range of motion Respiratory Exam: normal breath sounds, lungs clear Cardiovascular Exam: regular rate/rhythm, normal heart sounds Gastrointestinal/Abdomen Exam: soft, normal bowel sounds, No tenderness Pelvic Exam: not done Back Exam: normal inspection, normal range of motion, No CVA tenderness Extremity Exam: normal inspection, normal range of motion Neurologic Exam: alert, oriented x 3, cooperative Skin Exam: normal color SpO2 Interpretation: normal SpO2: 98 O2 Delivery: Room Air Ordered Tests: Active Orders 24 hr Category Date Time Status IV Insertion STAT Care 01/27/21 22:55 Active NPO (ED) STAT Care 01/27/21 22:55 Active OB FOLLOW UP PER FETUS [US] Stat Exams 01/27/21 22:55 Taken CBC W DIFF Stat Lab 01/27/21 23:02 Completed CMP Stat Lab 01/27/21 23:02 Completed CULTURE,URINE Stat Lab 01/28/21 00:58 Received HCG, Quantitative (Inhouse) Stat Lab 01/27/21 23:02 Completed UA W/RFX UR CULTURE Stat Lab 01/28/21 00:58 Completed Medication Summary Discontinued Medications Generic Name Dose Route Start Last Admin Trade Name Noe PRN Reason Stop Dose Admin Acetaminophen 975 mg 01/27/21 22:55 01/28/21 00:02 Tylenol 325 Mg PO 01/27/21 22:56 975 mg STAT ONE Administration Acetaminophen Confirm 01/27/21 23:27 Tylenol 325 Mg Administered 01/27/21 23:28 Dose 975 mg .ROUTE .STK-MED ONE Cephalexin HCl 500 mg 01/28/21 01:18 08 01:20 Keflex 500 Mg PO 01/28/21 01:19 500 mg STAT ONE Administration Cephalexin HCl Confirm 01/28/21 01:19 Keflex 500 Mg Administered 01/28/21 01:20 Dose 500 mg .ROUTE .STK-MED ONE Sodium Chloride 1,000 mls @ 999 mls/hr 01/27/21 22:55 01/28/21 00:21 Sodium Chloride 0.9% 1000 Ml IV 01/27/21 23:55 999 mls/hr .Q1H1M STA Administration Sodium Chloride Confirm 01/27/21 23:28 Sodium Chloride 0.9% 1000 Ml Administered 01/27/21 23:29 Dose 1,000 mls @ ud .ROUTE .STK-MED ONE Sodium Chloride Confirm 01/28/21 00:19 Sodium Chloride 0.9% 1000 Ml Administered 01/28/21 00:20 Dose 1,000 mls @ ud .ROUTE .STK-MED ONE Morphine Sulfate 2 mg 01/28/21 00:47 Morphine Sulfate 2 Mg Inj IV 01/28/21 00:48 STAT ONE Ondansetron HCl 4 mg 01/28/21 00:47 01/28/21 01:01 Zofran 4 Mg/2 Ml Vial IV 01/28/21 00:48 4 mg STAT ONE Administration Ondansetron HCl Confirm 01/28/21 00:59 Zofran 4 Mg/2 Ml Vial Administered 01/28/21 01:00 Dose 4 mg .ROUTE .STK-MED ONE Lab/Rad Data: Laboratory Result Diagrams 01/27/21 23:02 01/27/21 23:02 Laboratory Results 01/28/21 01/27/21 01/27/21 Range/Units 00:58 23:02 23:02 WBC (4.0-10.5) K/mm3 RBC (4.1-5.4) M/mm3 Hgb (12.0-16.0) gm/dl Hct (35-47) % MCV (78-100) fl MCH (26-32) pg MCHC (32-36) g/dl RDW (11.5-14.0) % Plt Count (150-450) K/mm3 MPV (7.5-11.0) fl Gran % (36.0-66.0) % Eos # (Auto) (0-0.5) Absolute Lymphs (auto) (1.0-4.6) Absolute Monos (auto) (0.0-1.3) Lymphocytes % (24.0-44.0) % Monocytes % (0.0-12.0) % Eosinophils % (0.00-5.0) % Basophils % (0.0-0.4) % Absolute Granulocytes (1.4-6.9) Basophils # (0-0.4) Sodium 138 (137-145) mmol/L Potassium 3.9 (3.5-5.1) mmol/L Chloride 104 (98-107) mmol/L Carbon Dioxide 23 (22-30) mmol/L Anion Gap 14.5 (5-15) MEQ/L BUN 11 (7-17) mg/dL Creatinine 0.56 (0.52-1.04) mg/dL Estimated GFR > 60.0 ML/MIN Glucose 96 (74-106) mg/dL Calcium 9.5 (8.4-10.2) mg/dL Total Bilirubin < 0.10 L (0.2-1.3) mg/dL AST 22 (14-36) U/L ALT 12 (0-35) U/L Alkaline Phosphatase 66 (38-126) U/L Serum Total Protein 6.9 (6.3-8.2) g/dL Albumin 4.2 (3.5-5.0) g/dL Beta HCG, Quant 69729 mIU/ml Urine Color STRAW (YELLOW) Urine Appearance CLEAR (CLEAR) Urine pH 7.0 (5-6) Ur Specific [place] 1.005 (1.005-1.025) Urine Protein NEGATIVE (Negative) Urine Ketones NEGATIVE (NEGATIVE) Urine Blood LARGE (0-5) Alcides/ul Urine Nitrite NEGATIVE (NEGATIVE) Urine Bilirubin NEGATIVE (NEGATIVE) Urine Urobilinogen NEGATIVE (0-1) mg/dL Ur Leukocyte Esterase TRACE (NEGATIVE) Urine WBC (Auto) 6-10 (0-5) /HPF Urine RBC (Auto) NONE (0-2) /HPF U Epithel Cells (Auto) NONE (FEW) /HPF Urine Bacteria (Auto) NONE (NEGATIVE) /HPF Urine Culture Reflexed YES (NO) Urine Glucose NEGATIVE (NEGATIVE) mg/dL ABO Group O Rh Factor POSITIVE Antibody Screen NEGATIVE (NEGATIVE) 01/27/21 Range/Units 23:02 WBC 9.1 (4.0-10.5) K/mm3 RBC 4.57 (4.1-5.4) M/mm3 Hgb 12.2 (12.0-16.0) gm/dl Hct 37.9 (35-47) % MCV 82.9 (78-100) fl MCH 26.7 (26-32) pg MCHC 32.2 (32-36) g/dl RDW 14.0 (11.5-14.0) % Plt Count 221 (150-450) K/mm3 MPV 9.7 (7.5-11.0) fl Gran % 52.1 (36.0-66.0) % Eos # (Auto) 0.24 (0-0.5) Absolute Lymphs (auto) 3.34 (1.0-4.6) Absolute Monos (auto) 0.76 (0.0-1.3) Lymphocytes % 36.7 (24.0-44.0) % Monocytes % 8.4 (0.0-12.0) % Eosinophils % 2.6 (0.00-5.0) % Basophils % 0.2 (0.0-0.4) % Absolute Granulocytes 4.73 (1.4-6.9) Basophils # 0.02 (0-0.4) Sodium (137-145) mmol/L Potassium (3.5-5.1) mmol/L Chloride (98-107) mmol/L Carbon Dioxide (22-30) mmol/L Anion Gap (5-15) MEQ/L BUN (7-17) mg/dL Creatinine (0.52-1.04) mg/dL Estimated GFR ML/MIN Glucose (74-106) mg/dL Calcium (8.4-10.2) mg/dL Total Bilirubin (0.2-1.3) mg/dL AST (14-36) U/L ALT (0-35) U/L Alkaline Phosphatase (38-126) U/L Serum Total Protein (6.3-8.2) g/dL Albumin (3.5-5.0) g/dL Beta HCG, Quant mIU/ml Urine Color (YELLOW) Urine Appearance (CLEAR) Urine pH (5-6) Ur Specific [place] (1.005-1.025) Urine Protein (Negative) Urine Ketones (NEGATIVE) Urine Blood (0-5) Alcides/ul Urine Nitrite (NEGATIVE) Urine Bilirubin (NEGATIVE) Urine Urobilinogen (0-1) mg/dL Ur Leukocyte Esterase (NEGATIVE) Urine WBC (Auto) (0-5) /HPF Urine RBC (Auto) (0-2) /HPF U Epithel Cells (Auto) (FEW) /HPF Urine Bacteria (Auto) (NEGATIVE) /HPF Urine Culture Reflexed (NO) Urine Glucose (NEGATIVE) mg/dL ABO Group Rh Factor Antibody Screen (NEGATIVE) - Progress Progress: improved, re-examined Air Movement: good Progress Note: 01/28/21 00:15 21 years old is evaluated for onset vaginal bleeding. She is given fluids and Tylenol, reevaluation feeling better. She has a stable H&H. I have obtained ul trasound transvaginal, preliminary report viable 7 weeks 0 days, heart tone 145 with thick subchorionic hemorrhage. Discussed with Dr. Silver primary OB for the patient, reviewed history, ultrasound findings and current management, recommended pelvic rest, increase hydration and outpatient follow-up with him as scheduled. 01/28/21 01:21 She is given Keflex for UTI and advised to picker tender helper her prescription which is already at the pharmacy from her previous ER visit. Plan discussed with patient who understand and agrees with it. Discussed signs symptoms of worsening needing return to ER which he seems understanding. Stable for discharge. Blood Culture(s) Obtained: No Antibiotics given: No Discussed with DrRory: Fabrice Counseled pt/family regarding: lab results, diagnosis, need for follow-up, rad results - Departure Departure Disposition: Home Clinical Impression: Vaginal bleeding Subchorionic hemorrhage in first trimester Qualifiers: Fetus number: single or unspecified fetus Qualified Code(s): O41.8X10 - Other specified disorders of amniotic fluid and membranes, first trimester, not applicable or unspecified; O46.8X1 - Other antepartum hemorrhage, first trimester UTI in Qualifiers: Trimester: first trimester Qualified Code(s): O23.41 - Unspecified infection of urinary tract in , first trimester Condition: Stable Critical Care Time: No Referrals: MAGNO TIRADO MD [Primary Care Provider] - Follow Up with PCP/3 days MEGAN VELAZCO DO [ACTIVE STAFF] - (As scheduled) Additional Instructions: Pelvic rest, no sexual activity. Increase hydration. Take Tylenol as needed. Follow-up with primary OB for reevaluation. Return to ER for worsening vaginal bleeding, passing products of conception, worsening cramping etc. picker tender helper your prescription of antibiotic from pharmacy for UTI.
[2021-01-27] MEDS ORDERED: TYLENOL 325 MG ONE (23:27)
[2021-01-27] MEDS ORDERED: Sodium Chloride 0.9% 1000 ML 1,000 ML ONE (23:28)
[2021-01-27 23:35] LABS: Absolute Neutrophil Ct (ANC) 4.73 (1.4-6.9); BASOPHIL % 0.2 % (0.0-0.4); Basophil (Absolute #) 0.02 (0-0.4); Eosinophil % 2.6 % (0.00-5.0); Eosinophil (Absolute #) 0.24 (0-0.5); Hematocrit 37.9 % (35-47); Hemoglobin 12.2 gm/dl (12.0-16.0); Lymphocyte (Absolute #) 3.34 (1.0-4.6); Lymphocytes % 36.7 % (24.0-44.0); Mean Cell Volume 82.9 fl (78-100); Mean Corpuscular Hemoglobin 26.7 pg (26-32); Mean Corpuscular Hgb Concent. 32.2 g/dl (32-36); Mean Platelet Volume 9.7 fl (7.5-11.0); Monocyte (Absolute #) 0.76 (0.0-1.3); Monocytes % 8.4 % (0.0-12.0); Neutrophil % 52.1 % (36.0-66.0); Platelet Count 221 K/mm3 (150-450); Red Blood Count 4.57 M/mm3 (4.1-5.4); White Blood Count 9.1 K/mm3 (4.0-10.5)
[2021-01-28 00:05] LABS: ALBUMIN 4.2 g/dL (3.5-5.0); ALKALINE PHOSPHATASE 66 U/L (38-126); ANION GAP 14.5 MEQ/L (5-15); BILIRUBIN,TOTAL < 0.10 mg/dL (0.2-1.3); BLOOD UREA NITROGEN 11 mg/dL (7-17); CHLORIDE 104 mmol/L (98-107); Calcium 9.5 mg/dL (8.4-10.2); Carbon Dioxide 23 mmol/L (22-30); Creatinine 1 0.56 mg/dL (0.52-1.04); EST GLOMERULAR FILTRATION RATE > 60.0 ML/MIN; Glucose 96 mg/dL (74-106); Potassium 3.9 mmol/L (3.5-5.1); SGOT/AST 22 U/L (14-36); SGPT/ALT 12 U/L (0-35); SODIUM 138 mmol/L (137-145); Total Protein 6.9 g/dL (6.3-8.2)
[2021-01-28 00:12] LABS: ABO TYPING O; Antibody Screen NEGATIVE (NEGATIVE); RH TYPING POSITIVE
[2021-01-28] MEDS ORDERED: Sodium Chloride 0.9% 1000 ML 0 ML ONE (00:19)
[2021-01-28 00:30] LABS: HCG, Quantitative (Inhouse) 51708 mIU/ml
[2021-01-28] MEDS ORDERED: MORPHINE SULFATE 2 MG INJ IV ONE (00:47)
[2021-01-28] MEDS ORDERED: Zofran 4 MG/2 ML VIAL IV ONE (00:47)
[2021-01-28] MEDS ORDERED: Zofran 4 MG/2 ML VIAL ONE (00:59)
[2021-01-28 01:17] LABS: Appearance CLEAR (CLEAR); Bilirubin NEGATIVE (NEGATIVE); Blood LARGE Ery/ul (0-5); Glucose NEGATIVE (NEGATIVE); Ketones NEGATIVE (NEGATIVE); Leukocyte Esterase TRACE (NEGATIVE); Nitrite NEGATIVE (NEGATIVE); Protein,Urine Dip NEGATIVE (Negative); Specific Gravity 1.005 (1.005-1.025); Urobilinogen NEGATIVE mg/dL (0-1)
[2021-01-28] MEDS ORDERED: KEFLEX 500 MG PO ONE (01:18)
[2021-01-28] MEDS ORDERED: KEFLEX 500 MG ONE (01:19)
[2021-01-28 01:27] VITALS: BP 116/69; PULSE 88; O2SAT 100
--- NOTE | 2021-01-28 09:05 | XRAY ---
Indication: Heavy bleeding. History subchorionic hemorrhage. Two-dimensional transvaginal early OB ultrasound performed. Comparison: December 25, 2020. Again there is a single intrauterine with mean crown-rump length measuring 0.96 cm corresponding to 7 weeks 0 days. heart rate 142 BPM. Large subchorionic hemorrhage now appears heterogeneous in echogenicity, possible clots. Cervix is closed. Right ovary sonographically unremarkable. Left ovary not seen. No suspicious adnexal mass or free fluid. Impression: Again single viable intrauterine measuring 7 weeks 0 days. There has been normal progression of with large heterogeneous subchorionic hemorrhage, possibly clots. Comment: Preliminary report was given to the ordering clinician.
== END 2021-01-28 01:32 | disposition home or self-care (01) ==
LOC: ED 22:33
DX: O41.8X10 Other specified disorders of amniotic fluid and membranes, first trimester, not applicable or unspecified (principal); O23.41 Unspecified infection of urinary tract in pregnancy, first trimester; Z3A.01 Less than 8 weeks gestation of pregnancy
CPT/HCPCS: 36000; 36415; 76816; 80053; 81001; 84702; 85025; 86850; 86900; 86901; 87086; 96360; 96374; 99284; J2405; A9270-GY

== ENCOUNTER 2021-04-11 13:16 | Emergency (ER) | payer OTHER ==
[2021-04-11] MEDS ORDERED: Sodium Chloride 0.9% 1000 ML 1,000 ML IV STA (13:52)
[2021-04-11] MEDS ORDERED: TYLENOL 325 MG PO ONE (13:52)
--- NOTE | 2021-04-11 13:59 | ERPHSYRPT ---
- History of Present Illness Time Seen by Provider: 04/11/21 13:40 Source: patient Exam Limitations: no limitations Patient Subjective Stated Complaint: Vaginal bleeding Triage Nursing Assessment: Patient ambulated back to ED and transferred self to bed. Patient A+O x3. Patient's skin pink, warm and dry. Patient states she was laying in bed when she had a pain in the lower abdomen/groin area and felt and gush. Patient went to bathroom and noted a large amount of bright red blood. Patient is 18 weeks pregant. Patient complains of lower abdomen/ groin pain a constant pressure 8/10. Physician History: Patient is a 21-year-old female presents to our ED for evaluation of vaginal bleeding. Patient is a currently 18 weeks states she was at home resting in bed when she felt an acute sharp pain in her pelvis. Patient then felt a gush of blood from her vagina. Patient went to the bathroom and observed bright red blood. Pain is constant. No associated trauma. No fever. No nausea or vomiting. Symptoms are mild to moderate in intensity. No specific worsening improving factors. Patient is otherwise healthy. Her SURGEON ASSISTANT physician is Dr. Alejandro. Patient voices no other complaints concerns at this time. Timing/Duration: today Severity: moderate Modifying Factors: Improves With: nothing Associated Symptoms: denies symptoms Allergies/Adverse Reactions: No Known Drug Allergies Allergy (Verified 04/11/21 13:28) Home Medications: Vits W-Ca,Fe,FA(<1Mg) [] 1 tablet PO DAILY 01/18/21 [History] Hx Tetanus, Diphtheria Vaccination/Date Given: Yes Hx Influenza Vaccination/Date Given: No Hx Pneumococcal Vaccination/Date Given: No Immunizations Up to Date: Yes Travel Risk - International Travel Have you traveled outside of the country in past 3 weeks: No - Coronavirus Screening Are you exhibiting any of the following symptoms?: No Close contact with a COVID-19 positive Pt in past 14-21 Days: No - Vaccine Status Have you recieved a Covid-19 vaccination: Yes 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: [employer] - Vaccination Dates Date of 2cond Vaccination (if applicable): August - Review of Systems Constitutional: No Symptoms, No Fever, No Chills Eyes: No Symptoms Ears, Nose, & Throat: No Symptoms Respiratory: No Symptoms, No Cough, No Dyspnea Cardiac: No Symptoms, No Chest Pain, No Edema, No Syncope Abdominal/Gastrointestinal: No Symptoms, No Abdominal Pain, No Nausea, No Vomiting, No Diarrhea Genitourinary Symptoms: No Symptoms, No Dysuria Musculoskeletal: No Symptoms, No Back Pain, No Neck Pain Skin: No Symptoms, No Rash Neurological: No Symptoms, No Dizziness, No Focal Weakness, No Sensory Changes Psychological: No Symptoms Endocrine: No Symptoms Hematologic/Lymphatic: No Symptoms Immunological/Allergic: No Symptoms All Other Systems: Reviewed and Negative - Past Medical History Pertinent Past Medical History: Yes Neurological History: No Pertinent History ENT History: No Pertinent History Cardiac History: No Pertinent History Respiratory History: Asthma, Pneumonia Endocrine Medical History: No Pertinent History Musculoskeletal History: No Pertinent History GI Medical History: No Pertinent History History: No Pertinent History Psycho-Social History: Anxiety Female Reproductive Disorders: No Pertinent History Other Medical History: raynauds, - Past Surgical History Past Surgical History: Yes Neuro Surgical History: No Pertinent History Cardiac: No Pertinent History Respiratory: No Pertinent History Gastrointestinal: No Pertinent History Genitourinary: No Pertinent History Musculoskeletal: No Pertinent History Female Surgical History: No Pertinent History Other Surgical History: TONSILS/ADENOIDS, BILATERAL EAR TUBES - Social History Smoking Status: Never smoker Exposure to second hand smoke: No Drug Use: none Patient Lives Alone: No - Female History Hx Last Menstrual Period: October 2020 Hx Now: Yes Expected Date of Delivery: 09/09/21 - Nursing Vital Signs Nursing Vital Signs: Initial Vital Signs Temperature 98.0 F 04/11/21 13:30 Pulse Rate 92 H 04/11/21 13:30 Respiratory Rate 18 04/11/21 13:30 Blood Pressure 112/67 04/11/21 13:30 O2 Sat by Pulse Oximetry 99 04/11/21 13:30 Pain Scale Pain Intensity 8 - Physical Exam General Appearance: no apparent distress, alert Eye Exam: PERRL/EOMI, eyes nml inspection Ears, Nose, Throat Exam: normal ENT inspection, TMs normal, pharynx normal, moist mucous membranes Neck Exam: normal inspection, non-tender, supple, full range of motion Respiratory Exam: normal breath sounds, lungs clear, No respiratory distress Cardiovascular Exam: regular rate/rhythm, normal heart sounds, normal peripheral pulses Gastrointestinal/Abdomen Exam: soft, normal bowel sounds, No tenderness, No mass Pelvic Exam: normal external exam, adnexal tenderness, No cervical motion tenderness (Slight right adnexal tenderness. No mass palpated. No CMT.), No vaginal bleeding (Obvious vaginal bleeding. Cervical os is closed.) Back Exam: normal inspection, normal range of motion, No CVA tenderness, No vertebral tenderness Extremity Exam: normal inspection, normal range of motion, pelvis stable Neurologic Exam: alert, oriented x 3, cooperative, normal mood/affect, nml cere bellar function, nml station & gait, sensation nml, No motor deficits Skin Exam: normal color, warm, dry, No rash Lymphatic Exam: No adenopathy SpO2: 99 - Course Nursing assessment & vital signs reviewed: Yes - Radiology Exams Pelvis X-ray Interpretation: Teleradiologist Report (Limited OB ultrasound demonstrates single viable intrauterine with heart rate of 167. Anterior placenta without abruption or previa. Cervix is closed measuring 4.4 cm in length.) Ordered Tests: Active Orders 24 hr Category Date Time Status IV Insertion STAT Care 04/11/21 13:52 Active OB >14 WKS 1st GESTATION [US] Stat Exams 04/11/21 13:55 Completed CBC W DIFF Stat Lab 04/11/21 14:10 Completed CMP Stat Lab 04/11/21 14:10 Completed HCG, Quantitative (Inhouse) Stat Lab 04/11/21 14:10 Received UA W/RFX UR CULTURE Stat Lab 04/11/21 13:59 Completed Wet Prep Stat Lab 04/11/21 14:13 Completed Medication Summary Discontinued Medications Generic Name Dose Route Start Last Admin Trade Name Joeq PRN Reason Stop Dose Admin Acetaminophen 975 mg 04/11/21 13:52 04/11/21 14:16 Acetaminophen 325 Mg Tablet PO 04/11/21 13:53 975 mg STAT ONE Administration Acetaminophen Confirm 04/11/21 14:15 Acetaminophen 325 Mg Tablet Administered 04/11/21 14:16 Dose 975 mg .ROUTE .STK-MED ONE Sodium Chloride 1,000 mls @ 999 mls/hr 04/11/21 13:52 04/11/21 15:20 Sodium Chloride 0.9% 1000 Ml IV 04/11/21 14:52 Infused .Q1H1M STA Infusion Sodium Chloride Confirm 04/11/21 14:15 Sodium Chloride 0.9% 1000 Ml Administered 04/11/21 14:16 Dose 1,000 mls @ ud .ROUTE .STK-MED ONE Lab/Rad Data: Laboratory Result Diagrams 04/11/21 14:10 04/11/21 14:10 Laboratory Results 04/11/21 04/11/21 04/11/21 Range/Units 14:13 14:10 14:10 WBC (4.0-10.5) K/mm3 RBC (4.1-5.4) M/mm3 Hgb (12.0-16.0) gm/dl Hct (35-47) % MCV (78-100) fl MCH (26-32) pg MCHC (32-36) g/dl RDW (11.5-14.0) % Plt Count (150-450) K/mm3 MPV (7.5-11.0) fl Gran % (36.0-66.0) % Eos # (Auto) (0-0.5) Absolute Lymphs (auto) (1.0-4.6) Absolute Monos (auto) (0.0-1.3) Lymphocytes % (24.0-44.0) % Monocytes % (0.0-12.0) % Eosinophils % (0.00-5.0) % Basophils % (0.0-0.4) % Absolute Granulocytes (1.4-6.9) Basophils # (0-0.4) Sodium 138 (137-145) mmol/L Potassium 3.9 (3.5-5.1) mmol/L Chloride 105 (98-107) mmol/L Carbon Dioxide 23 (22-30) mmol/L Anion Gap 14.7 (5-15) MEQ/L BUN 8 (7-17) mg/dL Creatinine 0.55 (0.52-1.04) mg/dL Estimated GFR > 60.0 ML/MIN Glucose 87 (74-106) mg/dL Calcium 8.9 (8.4-10.2) mg/dL Total Bilirubin 0.30 (0.2-1.3) mg/dL AST 24 (14-36) U/L ALT 9 (0-35) U/L Alkaline Phosphatase 58 (38-126) U/L Serum Total Protein 6.9 (6.3-8.2) g/dL Albumin 4.0 (3.5-5.0) g/dL Urine Color (YELLOW) Urine Appearance (CLEAR) Urine pH (5-6) Ur Specific [place] (1.005-1.025) Urine Protein (Negative) Urine Ketones (NEGATIVE) Urine Blood (0-5) Alcides/ul Urine Nitrite (NEGATIVE) Urine Bilirubin (NEGATIVE) Urine Urobilinogen (0-1) mg/dL Ur Leukocyte Esterase (NEGATIVE) Urine WBC (Auto) (0-5) /HPF Urine RBC (Auto) (0-2) /HPF U Epithel Cells (Auto) (FEW) /HPF Urine Bacteria (Auto) (NEGATIVE) /HPF Urine Mucus (Auto) (NEGATIVE) /HPF Urine Sperm (Auto) (NEGATIVE) /HPF Urine Culture Reflexed (NO) Urine Glucose (NEGATIVE) mg/dL WBC (Wet Prep) Moderate RBC (Wet Prep) Rare Epi Cells (Wet Prep) Moderate Bacteria (Wet Prep) Rare Clue Cells (Wet Prep) None Seen Trichomonas (Wet Prep) None Seen Budding Yeast (Wet Prp) None Seen Chlamydia DNA Probe (NEGATIVE) N.gonorrhoeae DNA Probe (NEGATIVE) ABO Group O Rh Factor POSITIVE Antibody Screen NEGATIVE (NEGATIVE) 04/11/21 04/11/21 04/11/21 Range/Units 14:10 13:59 13:52 WBC 8.8 (4.0-10.5) K/mm3 RBC 4.42 (4.1-5.4) M/mm3 Hgb 12.0 (12.0-16.0) gm/dl Hct 37.3 (35-47) % MCV 84.4 (78-100) fl MCH 27.1 (26-32) pg MCHC 32.2 (32-36) g/dl RDW 13.1 (11.5-14.0) % Plt Count 216 (150-450) K/mm3 MPV 9.6 (7.5-11.0) fl Gran % 70.0 H (36.0-66.0) % Eos # (Auto) 0.22 (0-0.5) Absolute Lymphs (auto) 1.79 (1.0-4.6) Absolute Monos (auto) 0.61 (0.0-1.3) Lymphocytes % 20.4 L (24.0-44.0) % Monocytes % 6.9 (0.0-12.0) % Eosinophils % 2.5 (0.00-5.0) % Basophils % 0.2 (0.0-0.4) % Absolute Granulocytes 6.15 (1.4-6.9) Basophils # 0.02 (0-0.4) Sodium (137-145) mmol/L Potassium (3.5-5.1) mmol/L Chloride (98-107) mmol/L Carbon Dioxide (22-30) mmol/L Anion Gap (5-15) MEQ/L BUN (7-17) mg/dL Creatinine (0.52-1.04) mg/dL Estimated GFR ML/MIN Glucose (74-106) mg/dL Calcium (8.4-10.2) mg/dL Total Bilirubin (0.2-1.3) mg/dL AST (14-36) U/L ALT (0-35) U/L Alkaline Phosphatase (38-126) U/L Serum Total Protein (6.3-8.2) g/dL Albumin (3.5-5.0) g/dL Urine Color YELLOW (YELLOW) Urine Appearance CLEAR (CLEAR) Urine pH 7.0 (5-6) Ur Specific [place] 1.012 (1.005-1.025) Urine Protein NEGATIVE (Negative) Urine Ketones NEGATIVE (NEGATIVE) Urine Blood NEGATIVE (0-5) Alcides/ul Urine Nitrite NEGATIVE (NEGATIVE) Urine Bilirubin NEGATIVE (NEGATIVE) Urine Urobilinogen NEGATIVE (0-1) mg/dL Ur Leukocyte Esterase TRACE (NEGATIVE) Urine WBC (Auto) 3-5 (0-5) /HPF Urine RBC (Auto) 0-2 (0-2) /HPF U Epithel Cells (Auto) NONE (FEW) /HPF Urine Bacteria (Auto) RARE (NEGATIVE) /HPF Urine Mucus (Auto) SLIGHT (NEGATIVE) /HPF Urine Sperm (Auto) PRESENT (NEGATIVE) /HPF Urine Culture Reflexed NO (NO) Urine Glucose NEGATIVE (NEGATIVE) mg/dL WBC (Wet Prep) RBC (Wet Prep) Epi Cells (Wet Prep) Bacteria (Wet Prep) Clue Cells (Wet Prep) Trichomonas (Wet Prep) Budding Yeast (Wet Prp) Chlamydia DNA Probe NOT DETECTED (NEGATIVE) N.gonorrhoeae DNA Probe NOT DETECTED (NEGATIVE) ABO Group Rh Factor Antibody Screen (NEGATIVE) - Progress Progress: improved Progress Note: Patient reassessed. Pain improved but not completely resolved. We advised additional pain medication but patient declined. Patient states that she will self treat with [id number] Tylenol as needed. OB ultrasound shows viable fetus. No placenta previa or abruption. Patient is Rh+. No indication for R hoGam at this time. Laboratory work-up essentially nonremarkable. Pelvic exam shows a closed os. This was confirmed on the ultrasound as well. GC chlamydia negative. Wet prep negative as well. Vital stable. Patient states is ready for discharge. No indication for further work-up at this time. Will discharge home. Patient agrees to follow-up with primary care doctor within 48 hours for reevaluation. UA negative for UTI. Portions of this note were created with voice recognition technology. There may be grammatical, spelling, punctuation or sound alike errors 04/11/21 16:30 - Departure Departure Disposition: Home Clinical Impression: Threatened , Pelvic pain Condition: Stable Critical Care Time: No Referrals: MAGNO TIRADO MD [Primary Care Provider] - Additional Instructions: Discharge/Care Plan INGRID KELLY was seen on 04/11/21 in the Emergency Room. The patient was counseled regarding Diagnosis,Lab results, Imaging studies, need for follow up and when to return to the Emergency Room. Prescriptions given: Discharge Note I have spoken with the patient and/or caregivers. I have explained the patient's condition, diagnosis and treatment plan based on the information available to me at this time. I have answered the patient's and/or caregiver's questions and a ddressed any concerns. The patient and/or caregivers have as good understanding of the patient's diagnosis, condition and treatment plan as can be expected at this point. The vital signs have been stable. The patient's condition is stable and appropriate for discharge from the emergency department. The patient will pursue further outpatient evaluation with the primary care physician or other designated or consulting physician as outlined in the discharge instructions. The patient and/or caregivers are agreeable to this plan of care and follow-up instructions have been explained in detail. The patient and/or caregivers have received these instruction. The patient/and or caregivers are aware that any significant change in condition or worsening of symptoms should prompt an immediate return to this or the closest emergency department or call 911.
[2021-04-11] MEDS ORDERED: Sodium Chloride 0.9% 1000 ML 1,000 ML ONE (14:15)
[2021-04-11] MEDS ORDERED: TYLENOL 325 MG ONE (14:15)
[2021-04-11 14:16] LABS: Appearance CLEAR (CLEAR); Bacteria RARE /HPF (NEGATIVE); Bilirubin NEGATIVE (NEGATIVE); Blood NEGATIVE Ery/ul (0-5); Glucose NEGATIVE (NEGATIVE); Ketones NEGATIVE (NEGATIVE); Leukocyte Esterase TRACE (NEGATIVE); Mucus SLIGHT /HPF (NEGATIVE); Nitrite NEGATIVE (NEGATIVE); Protein,Urine Dip NEGATIVE (Negative); RBC 0-2 /HPF (0-2); Specific Gravity 1.012 (1.005-1.025); Sperm PRESENT /HPF (NEGATIVE); Urobilinogen NEGATIVE mg/dL (0-1)
[2021-04-11 14:24] LABS: Absolute Neutrophil Ct (ANC) 6.15 (1.4-6.9); BASOPHIL % 0.2 % (0.0-0.4); Basophil (Absolute #) 0.02 (0-0.4); Eosinophil % 2.5 % (0.00-5.0); Eosinophil (Absolute #) 0.22 (0-0.5); Hematocrit 37.3 % (35-47); Lymphocyte (Absolute #) 1.79 (1.0-4.6); Lymphocytes % 20.4 % (24.0-44.0); Mean Cell Volume 84.4 fl (78-100); Mean Corpuscular Hemoglobin 27.1 pg (26-32); Mean Corpuscular Hgb Concent. 32.2 g/dl (32-36); Mean Platelet Volume 9.6 fl (7.5-11.0); Monocyte (Absolute #) 0.61 (0.0-1.3); Monocytes % 6.9 % (0.0-12.0); Platelet Count 216 K/mm3 (150-450); Red Blood Count 4.42 M/mm3 (4.1-5.4); Red Cell Distribution Width 13.1 % (11.5-14.0); White Blood Count 8.8 K/mm3 (4.0-10.5)
[2021-04-11 14:34] LABS: ALKALINE PHOSPHATASE 58 U/L (38-126); ANION GAP 14.7 MEQ/L (5-15); BLOOD UREA NITROGEN 8 mg/dL (7-17); CHLORIDE 105 mmol/L (98-107); Calcium 8.9 mg/dL (8.4-10.2); Carbon Dioxide 23 mmol/L (22-30); Creatinine 1 0.55 mg/dL (0.52-1.04); EST GLOMERULAR FILTRATION RATE > 60.0 ML/MIN; Glucose 87 mg/dL (74-106); Potassium 3.9 mmol/L (3.5-5.1); SGOT/AST 24 U/L (14-36); SGPT/ALT 9 U/L (0-35); SODIUM 138 mmol/L (137-145); Total Protein 6.9 g/dL (6.3-8.2)
[2021-04-11 14:46] LABS: Bacteria Rare; Clue Cells None Seen; Red Blood Cells Rare; Trichomonas None Seen
[2021-04-11 14:47] LABS: White Blood Cells Moderate; Yeast None Seen
--- NOTE | 2021-04-11 14:53 | XRAY ---
Indication: Bleeding and cramping. Limited OB ultrasound demonstrates single viable intrauterine with heart rate 167 BPM. Anterior placenta without abruption/previa. Cervix is closed measuring 4.4 cm in length.
[2021-04-11 14:59] LABS: ABO TYPING O; Antibody Screen NEGATIVE (NEGATIVE); RH TYPING POSITIVE
[2021-04-11 15:15] VITALS: BP 103/56; PULSE 88
[2021-04-11 15:28] LABS: CHLAMYDIA DNA NOT DETECTED (NEGATIVE); GC DNA Probe NOT DETECTED (NEGATIVE)
[2021-04-11 16:32] VITALS: O2SAT 99
== END 2021-04-11 16:52 | disposition home or self-care (01) ==
LOC: ED 13:16
DX: O20.0 Threatened abortion (principal); Z3A.18 18 weeks gestation of pregnancy; Z37.2 Twins, both liveborn; R10.2 Pelvic and perineal pain
CPT/HCPCS: 36000; 36415; 76805; 80053; 81001; 84702; 85025; 86850; 86900; 86901; 87210; 87491; 87591; 96360; 99284; A9270-GY

== ENCOUNTER 2021-07-28 14:17 | Observation (INO) | payer OTHER ==
[2021-07-28 15:15] LABS: Appearance CLEAR (CLEAR); Bilirubin NEGATIVE (NEGATIVE); Blood MODERATE Ery/ul (0-5); Epithelial Cells RARE /HPF (FEW); Glucose NEGATIVE (NEGATIVE); Ketones NEGATIVE (NEGATIVE); Leukocyte Esterase NEGATIVE (NEGATIVE); Nitrite NEGATIVE (NEGATIVE); Protein,Urine Dip NEGATIVE (Negative); Specific Gravity 1.004 (1.005-1.025); Urobilinogen NEGATIVE mg/dL (0-1); WBC 0-2 /HPF (0-5)
[2021-07-28 15:20] LABS: Amphetamine,Urine NEGATIVE (NEGATIVE); Barbiturate,Urine NEGATIVE (NEGATIVE); Benzodiazepine,Urine NEGATIVE (NEGATIVE); Cocaine,Urine NEGATIVE (NEGATIVE); Methadone,Urine NEGATIVE (NEGATIVE); Opiate,Urine NEGATIVE (NEGATIVE); PCP,Urine NEGATIVE (NEGATIVE); THC,Urine NEGATIVE (NEGATIVE)
[2021-07-28 15:25] VITALS: BP 117/70; PULSE 110; O2SAT 99
[2021-07-28] MEDS ORDERED: Lactated Ringers 1,000 ML IV ONE ×2 (15:40→15:42)
[2021-07-28 18:57] LABS: CHLAMYDIA DNA NOT DETECTED (NEGATIVE); GC DNA Probe NOT DETECTED (NEGATIVE)
--- NOTE | 2021-07-28 19:07 | XRAY ---
Indication: labor. Evaluate MAGDALENA and placenta. Comparison: None for this . Limited OB ultrasound demonstrates single intrauterine in cephalic presentation with heart rate 141 BPM. Anterior placenta without abnormal retroplacental fluid. Four quadrant MAGDALENA is 12.5 cm. Comment: Preliminary report was given.
== END 2021-07-28 17:30 | disposition home or self-care (01) ==
LOC: MED SURG 14:17 → UNDOADMOB 14:17 → UNDODISOB 17:30
PROVIDERS: ADMIT Family Medicine; ATTEND Family Medicine
DX: Z34.83 Encounter for supervision of other normal pregnancy, third trimester (principal); Z3A.34 34 weeks gestation of pregnancy
CPT/HCPCS: 76815; 80307; 81001; 84112; 87491; 87591; G0378

== ENCOUNTER 2021-08-05 12:15 | Emergency (ER) | payer OTHER ==
[2013-02-10 17:01] VITALS: BP 131/79
== END 2021-08-05 12:21 | disposition left against medical advice (07) ==
LOC: ED 12:15
DX: Z53.21 Procedure and treatment not carried out due to patient leaving prior to being seen by health care provider (principal)
CPT/HCPCS: 99281

== ENCOUNTER 2022-11-03 16:02 | Emergency (ER) | payer OTHER ==
[2022-11-03 17:22] LABS: Absolute Neutrophil Ct (ANC) 4.19 x10^3/uL (1.4-6.9); BASOPHIL % 0.6 % (0.0-0.4); Basophil (Absolute #) 0.05 x10^3/uL (0-0.4); Eosinophil % 3.8 % (0.00-5.0); Eosinophil (Absolute #) 0.33 x10^3/uL (0-0.5); IMMATURE GRAN # 0.03 x10^3u/L (0.00-0.03); IMMATURE GRAN % 0.3 % (0.00-0.4); Lymphocyte (Absolute #) 3.56 x10^3/uL (1.0-4.6); Lymphocytes % 41.2 % (24.0-44.0); Mean Cell Volume 81.8 fL (78-100); Mean Corpuscular Hemoglobin 25.9 pg (26-32); Mean Corpuscular Hgb Concent. 31.7 g/dL (32-36); Monocyte (Absolute #) 0.49 x10^3/uL (0.0-1.3); Monocytes % 5.7 % (0.0-12.0); Neutrophil % 48.4 % (36.0-66.0); Platelet Count 286 x10^3/uL (150-450); Red Blood Count 5.01 x10^6/uL (4.1-5.4); Red Cell Distribution Width 12.4 % (11.5-14.0); White Blood Count 8.7 x10^3/uL (4.0-10.5)
[2022-11-03] MEDS ORDERED: TORAdol 30 mg Injection IV ONE (17:22)
[2022-11-03 17:27] VITALS: O2SAT 98
[2022-11-03 17:32] LABS: HCG URINE TEST NEGATIVE (NEGATIVE)
[2022-11-03] MEDS ORDERED: TORAdol 30 mg Injection ONE (17:32)
[2022-11-03 17:36] LABS: Appearance Clear (Clear); Bacteria None Seen /HPF (None Seen); Bilirubin Negative (Negative); Blood Negative (Negative); Epithelial Cells None Seen /HPF (None Seen); Glucose, Urine Negative (Negative); Hyaline Casts NONE SEEN /LPF (0-2); Ketones Negative (Negative); Leukocyte Esterase Negative (Negative); Nitrite Negative (Negative); Ph 6.5 (4.6-8.0); Protein,Urine Dip Negative (Negative); RBC 0-2 /HPF (0-5); Specific Gravity <=1.005 (1.005-1.030); Urobilinogen 0.2 mg/dL (0.2); WBC 0-2 /HPF (0-5)
[2022-11-03 17:39] LABS: ALBUMIN 4.2 g/dL (3.5-5.0); ALKALINE PHOSPHATASE 70 U/L (38-126); BLOOD UREA NITROGEN 11 mg/dL (7-17); CHLORIDE 103 mmol/L (98-107); Calcium 8.7 mg/dL (8.4-10.2); Carbon Dioxide 26 mmol/L (22-30); Creatinine 1 0.73 mg/dL (0.52-1.04); EST GLOMERULAR FILTRATION RATE > 60.0 ML/MIN; Glucose 75 mg/dL (74-106); Potassium 3.5 mmol/L (3.5-5.1); SGOT/AST 25 U/L (14-36); SGPT/ALT 16 U/L (0-35); SODIUM 140 mmol/L (137-145); Total Protein 7.6 g/dL (6.3-8.2)
[2022-11-03 17:40] LABS: ADD URINE CULTURE? NO (NO)
--- NOTE | 2022-11-03 18:33 | ERPHSYRPT ---
- History of Present Illness Time Seen by Provider: 11/03/22 16:50 Historian: patient Exam Limitations: no limitations Patient Subjective Stated Complaint: Pt states "I had a ct with contrast for whole body looking for blood clots and ever since then I have had horrible belly pain, diarrhea and pain in my abdomen on my left lower abdomen." Triage Nursing Assessment: Pt presented alert and oriented X 3, skin pwd. Pt ambulates with an upright steady gait, able to speak in clear full sentences. PT slighlty guarding her left lower abdomen. Pt in no apparent respiratory distress. Physician History: Patient is a 22-year-old female presents to our ED for evaluation of left lower quadrant pain. Pain started today. Pain is constant. No trauma. No fever no vaginal discharge. Patient does not believe she is . Symptoms are progressive. Symptoms are moderate in intensity. Palpation reproduces pain. Patient voices no other complaints or concerns at this time. Timing/Duration: today Activities at Onset: none Quality: aching Abdominal Pain Onset Location: LLQ Pain Radiation: no radiation Severity of Pain-Max: moderate Severity of Pain-Current: mild Modifying Factors: Improves With: palpation Associated Symptoms: diarrhea Previous symptoms: no prior history Allergies/Adverse Reactions: sumatriptan [From Imitrex] Allergy (Severe, Verified 11/03/22 16:22) swollen Home Medications: Divalproex Sodium ER 250 mg [Depakote EXTENDED RELEASE 250 MG] 250 mg PO BID 11/03/22 [History] Levocetirizine Dihydrochloride [Allergy Relief] 5 mg PO HS 11/03/22 [History] Hx Tetanus, Diphtheria Vaccination/Date Given: Yes Hx Influenza Vaccination/Date Given: No Hx Pneumococcal Vaccination/Date Given: No Immunizations Up to Date: Yes Travel Risk - International Travel Have you traveled outside of the country in past 3 weeks: No - Coronavirus Screening Are you exhibiting any of the following symptoms?: Yes Symptoms: Vomiting/Diarrhea Close contact with a COVID-19 positive Pt in past 14-21 Days: No - Vaccine Status Have you recieved a Covid-19 vaccination: Yes [employer]: [employer] - Vaccination Dates Date of 2cond Vaccination (if applicable): 03/12/21 - Review of Systems Constitutional: No Symptoms, No Fever, No Chills Eyes: No Symptoms Ears, Nose, & Throat: No Symptoms Respiratory: No Symptoms, No Cough, No Dyspnea Cardiac: No Symptoms, No Chest Pain, No Edema, No Syncope Abdominal/Gastrointestinal: No Symptoms, No Abdominal Pain, No Nausea, No Vomiting, No Diarrhea Genitourinary Symptoms: No Symptoms, No Dysuria Musculoskeletal: No Symptoms, No Back Pain, No Neck Pain Skin: No Symptoms, No Rash Neurological: No Symptoms, No Dizziness, No Focal Weakness, No Sensory Changes Psychological: No Symptoms Endocrine: No Symptoms Hematologic/Lymphatic: No Symptoms Immunological/Allergic: No Symptoms All Other Systems: Reviewed and Negative - Past Medical History Pertinent Past Medical History: Yes Neurological History: No Pertinent History ENT History: No Pertinent History Cardiac History: No Pertinent History Respiratory History: Asthma, Pneumonia Endocrine Medical History: No Pertinent History Musculoskeletal History: No Pertinent History GI Medical History: No Pertinent History History: No Pertinent History Psycho-Social History: Anxiety Female Reproductive Disorders: No Pertinent History Other Medical History: raynauds, - Past Surgical History Past Surgical History: Yes Neuro Surgical History: No Pertinent History Cardiac: No Pertinent History Respiratory: No Pertinent History Gastrointestinal: No Pertinent History Genitourinary: No Pertinent History Musculoskeletal: No Pertinent History Female Surgical History: No Pertinent History Other Surgical History: TONSILS/ADENOIDS, BILATERAL EAR TUBES. uterine repair - Social History Smoking Status: Never smoker Exposure to second hand smoke: No Drug Use: none Patient Lives Alone: No - Female History Hx Last Menstrual Period: ring, unknown Hx Now: No - Nursing Vital Signs Nursing Vital Signs: Initial Vital Signs Temperature 97.7 F 11/03/22 16:17 Pulse Rate 81 11/03/22 16:17 Respiratory Rate 20 11/03/22 16:17 Blood Pressure 129/79 11/03/22 16:17 O2 Sat by Pulse Oximetry 93 L 11/03/22 16:17 Pain Scale Pain Intensity 7 - Physical Exam General Appearance: no apparent distress, alert Eye Exam: PERRL/EOMI, eyes nml inspection Ears, Nose, Throat Exam: normal ENT inspection, pharynx normal, moist mucous membranes Neck Exam: normal inspection, non-tender, supple, full range of motion Respiratory Exam: normal breath sounds, lungs clear, airway intact, No respiratory distress Cardiovascular Exam: regular rate/rhythm, normal heart sounds, normal peripheral pulses Gastrointestinal/Abdomen Exam: soft, other (Left lower quadrant pain into the left upper pelvis), No tenderness, No mass Pelvic Exam: normal external exam, adnexal tenderness, other (Scant white vaginal discharge. Mild left adnexal tenderness. No CMT. No foul order. No open or draining lesions. Normal-appearing external anatomy.), No vaginal bleeding, No uterine tenderness, No vaginal discharge Back Exam: normal inspection, normal range of motion, No CVA tenderness, No vertebral tenderness Extremity Exam: normal inspection, normal range of motion, pelvis stable Neurologic Exam: alert, oriented x 3, cooperative, normal mood/affect, nml cerebellar function, sensation nml, No motor deficits Skin Exam: normal color, warm, dry SpO2 Interpretation: normal SpO2: 98 O2 Delivery: Room Air - Course Nursing assessment & vital signs reviewed: Yes - CT Exams Abdomen/Pelvis CT Interpretation: Tele-radiologist Report (Compared to 04/25/2022, IUD removed. Stable tiny appendicolith. Remaining abdomen pelvis negative) Ordered Tests: Active Orders 24 hr Category Date Time Status IV Insertion STAT Care 11/03/22 17:22 Active ABDOMEN AND PELVIS W/0 CONTRAS [CT] Stat Exams 11/03/22 17:01 Taken PELVIC [US] Stat Exams 11/03/22 17:01 Taken CBC W DIFF Stat Lab 11/03/22 17:10 Completed CMP Stat Lab 11/03/22 17:10 Completed HCG QUALITATIVE, URINE Stat Lab 11/03/22 17:22 Completed UA W/RFX UR CULTURE Stat Lab 11/03/22 17:22 Completed Medication Summary Discontinued Medications Generic Name Dose Route Start Last Admin Trade Name oNe PRN Reason Stop Dose Admin Ketorolac Tromethamine 30 mg 11/03/22 17:22 11/03/22 17:34 Ketorolac Tromethamine 30 Mg/Ml Inj IV 11/03/22 17:23 30 mg STAT ONE Administration Ketorolac Tromethamine Confirm 11/03/22 17:32 Ketorolac Tromethamine 30 Mg/Ml Inj Administered 11/03/22 17:33 Dose 30 mg .ROUTE .STK-MED ONE Lab/Rad Data: Laboratory Result Diagrams 11/03/22 17:10 11/03/22 17:10 Laboratory Results 11/03/22 11/03/22 11/03/22 Range/Units 17:22 17:22 17:10 WBC (4.0-10.5) x10^3/uL RBC (4.1-5.4) x10^6/uL Hgb (12.0-16.0) g/dL Hct (35-47) % MCV (78-100) fL MCH (26-32) pg MCHC (32-36) g/dL RDW (11.5-14.0) % Plt Count (150-450) x10^3/uL MPV (7.5-11.0) fL Gran % (36.0-66.0) % Immature Gran % (Auto) (0.00-0.4) % Nucleat RBC Rel Count (0.00-0.1) % Eos # (Auto) (0-0.5) x10^3/uL Immature Gran # (Auto) (0.00-0.03) x10^3u/L Absolute Lymphs (auto) (1.0-4.6) x10^3/uL Absolute Monos (auto) (0.0-1.3) x10^3/uL Absolute Nucleated RBC (0.00-0.01) x10^3u/L Lymphocytes % (24.0-44.0) % Monocytes % (0.0-12.0) % Eosinophils % (0.00-5.0) % Basophils % (0.0-0.4) % Absolute Granulocytes (1.4-6.9) x10^3/uL Basophils # (0-0.4) x10^3/uL Sodium 140 (137-145) mmol/L Potassium 3.5 (3.5-5.1) mmol/L Chloride 103 (98-107) mmol/L Carbon Dioxide 26 (22-30) mmol/L Anion Gap 15.0 (5-15) MEQ/L BUN 11 (7-17) mg/dL Creatinine 0.73 (0.52-1.04) mg/dL Estimated GFR > 60.0 ML/MIN Glucose 75 (74-106) mg/dL Calcium 8.7 (8.4-10.2) mg/dL Total Bilirubin 0.30 (0.2-1.3) mg/dL AST 25 (14-36) U/L ALT 16 (0-35) U/L Alkaline Phosphatase 70 (38-126) U/L Serum Total Protein 7.6 (6.3-8.2) g/dL Albumin 4.2 (3.5-5.0) g/dL Urine Color Yellow (Yellow) Urine Appearance Clear (Clear) Urine pH 6.5 (4.6-8.0) Ur Specific [place] <=1.005 (1.005-1.030) Urine Protein Negative (Negative) Urine Glucose (UA) Negative (Negative) mg/dL Urine Ketones Negative (Negative) Urine Blood Negative (Negative) Urine Nitrite Negative (Negative) Urine Bilirubin Negative (Negative) Urine Urobilinogen 0.2 (0.2) mg/dL Ur Leukocyte Esterase Negative (Negative) U Hyaline Cast (Auto) NONE SEEN (0-2) /LPF Urine Microscopic RBC 0-2 (0-5) /HPF Urine Microscopic WBC 0-2 (0-5) /HPF Ur Epithelial Cells None Seen (None Seen) /HPF Urine Bacteria None Seen (None Seen) /HPF Urine Culture Reflexed NO (NO) Urine HCG, Qual NEGATIVE (NEGATIVE) 11/03/22 Range/Units 17:10 WBC 8.7 (4.0-10.5) x10^3/uL RBC 5.01 (4.1-5.4) x10^6/uL Hgb 13.0 (12.0-16.0) g/dL Hct 41.0 (35-47) % MCV 81.8 (78-100) fL MCH 25.9 L (26-32) pg MCHC 31.7 L (32-36) g/dL RDW 12.4 (11.5-14.0) % Plt Count 286 (150-450) x10^3/uL MPV 10.0 (7.5-11.0) fL Gran % 48.4 (36.0-66.0) % Immature Gran % (Auto) 0.3 (0.00-0.4) % Nucleat RBC Rel Count 0.0 (0.00-0.1) % Eos # (Auto) 0.33 (0-0.5) x10^3/uL Immature Gran # (Auto) 0.03 (0.00-0.03) x10^3u/L Absolute Lymphs (auto) 3.56 (1.0-4.6) x10^3/uL Absolute Monos (auto) 0.49 (0.0-1.3) x10^3/uL Absolute Nucleated RBC 0.00 (0.00-0.01) x10^3u/L Lymphocytes % 41.2 (24.0-44.0) % Monocytes % 5.7 (0.0-12.0) % Eosinophils % 3.8 (0.00-5.0) % Basophils % 0.6 (0.0-0.4) % Absolute Granulocytes 4.19 (1.4-6.9) x10^3/uL Basophils # 0.05 (0-0.4) x10^3/uL Sodium (137-145) mmol/L Potassium (3.5-5.1) mmol/L Chloride (98-107) mmol/L Carbon Dioxide (22-30) mmol/L Anion Gap (5-15) MEQ/L BUN (7-17) mg/dL Creatinine (0.52-1.04) mg/dL Estimated GFR ML/MIN Glucose (74-106) mg/dL Calcium (8.4-10.2) mg/dL Total Bilirubin (0.2-1.3) mg/dL AST (14-36) U/L ALT (0-35) U/L Alkaline Phosphatase (38-126) U/L Serum Total Protein (6.3-8.2) g/dL Albumin (3.5-5.0) g/dL Urine Color (Yellow) Urine Appearance (Clear) Urine pH (4.6-8.0) Ur Specific [place] (1.005-1.030) Urine Protein (Negative) Urine Glucose (UA) (Negative) mg/dL Urine Ketones (Negative) Urine Blood (Negative) Urine Nitrite (Negative) Urine Bilirubin (Negative) Urine Urobilinogen (0.2) mg/dL Ur Leukocyte Esterase (Negative) U Hyaline Cast (Auto) (0-2) /LPF Urine Microscopic RBC (0-5) /HPF Urine Microscopic WBC (0-5) /HPF Ur Epithelial Cells (None Seen) /HPF Urine Bacteria (None Seen) /HPF Urine Culture Reflexed (NO) Urine HCG, Qual (NEGATIVE) - Progress Progress: improved Progress Note: Patient is a 22-year-old female presents to our ED with left lower quadrant pain. Physical exam reveals tenderness to palpation at the junction of the left lower abdomen and pelvis. CT abdomen pelvis initially nonremarkable. Ultrasound pelvis negative as well. No torsion. CBC CMP within normal limits. No leukocytosis. hCG negative. UA negative. No UTI. Patient received [place] l for pain control. Pelvic exam completed. Results pending. Patient requesting discharge. We will follow-up on results and notify patient's if any positive results of care. Patient requesting discharge. Will discharge home. Patient voices no other complaints or concerns at this time. Portions of this note were created with voice recognition technology. There may be grammatical, spelling, punctuation or sound alike errors 11/03/22 19:11 Counseled pt/family regarding: lab results, diagnosis, need for follow-up, rad results - Departure Departure Disposition: Home Clinical Impression: Abdominal pain, Pelvic pain Condition: Stable Critical Care Time: No Referrals: MAGNO TIRADO MD [Primary Care Provider] - Follow up/PCP as directed Additional Instructions: Discharge/Care Plan INGRID KELLY was seen on 11/03/22 in the Emergency Room. The patient was counseled regarding Diagnosis,Lab results, Imaging studies, need for follow up and when to return to the Emergency Room. Prescriptions given: Discharge Note I have spoken with the patient and/or caregivers. I have explained the patient's condition, diagnosis and treatment plan based on the information available to me at this time. I have answered the patient's and/or caregiver's questions and addressed any concerns. The patient and/or caregivers have as good understanding of the patient's diagnosis, condition and treatment plan as can be expected at this point. The vital signs have been stable. The patient's condition is stable and appropriate for discharge from the emergency department. The patient will pursue further outpatient evaluation with the primary care physician or other designated or consulting physician as outlined in the discharge instructions. The patient and/or caregivers are agreeable to this plan of care and follow-up instructions have been explained in detail. The patient a nd/or caregivers have received these instruction. The patient/and or caregivers are aware that any significant change in condition or worsening of symptoms should prompt an immediate return to this or the closest emergency department or call 911. Prescriptions: Ketorolac Trometh 10 mg Tab [TORAdol 10 MG TABLET] 10 mg PO TID 5 Days #15 tablet
[2022-11-03 19:28] VITALS: BP 111/69; PULSE 95
[2022-11-03 19:36] LABS: Candida Group NOT DETECTED (NEGATIVE)
[2022-11-03 20:06] LABS: CHLAMYDIA DNA NOT DETECTED (NEGATIVE); GC DNA Probe NOT DETECTED (NEGATIVE)
--- NOTE | 2022-11-04 08:27 | XRAY ---
Indication: Left lower quadrant pain. Multiple contiguous axial images obtained through the abdomen and pelvis without contrast. Comparison: April 25, 2022 Lung bases clear. Heart not enlarged. Noncontrasted stomach and bowel loops nonobstructed. Again normal-appearing appendix with tiny appendicolith. Previous uterine IUD has been removed. No free fluid/air. Gallbladder contracted without gallstones. Remaining liver, gallbladder, pancreas, spleen, adrenal glands, kidneys, ureters, bladder, uterus, and aorta are unremarkable for noncontrast exam. Osseous structures intact. Impression: Again incidental appendicolith. Remaining CT abdomen/pelvis without contrast exam is negative.
--- NOTE | 2022-11-04 08:29 | XRAY ---
Dictation: Left lower quadrant pain. Two-dimensional transabdominal pelvic sonogram performed. Comparison: December 27, 2021 Uterus again anteverted measuring 8.4 x 3.6 x 5.2 cm. No focal solid/cystic uterine mass. Endometrial stripe measures 6.3 mm. IUD has been removed. No endometrial cavity mass or fluid collection. Right ovary measures 2.5 x 1.5 x 3.0 cm and the left measures 2.8 x 1.7 x 2.4 cm. Normal follicular cysts and perfusion bilaterally. No suspicious adnexal mass or free fluid. Impression: Negative transabdominal pelvic sonogram. Comment: Preliminary report was given.
== END 2022-11-03 19:27 | disposition home or self-care (01) ==
LOC: ED 16:02
DX: R10.32 Left lower quadrant pain (principal); R10.2 Pelvic and perineal pain; Z79.899 Other long term (current) drug therapy
CPT/HCPCS: 36000; 36415; 74176; 76856; 80053; 81001; 81025; 85025; 87481; 87491; 87591; 87661; 87801; 96374; 99284; J1885

== ENCOUNTER 2023-02-03 07:21 | Day surgery (SDC) | payer OTHER ==
[2023-02-03] MEDS ORDERED: Transderm Scop 1.5MG Patch TOP PRN (07:33)
[2023-02-03 07:47] VITALS: RESP 16
[2023-02-03] MEDS ORDERED: CEFAZOLIN 2 GM-D5W BAG** 2 GM/50 ML ML IV ONE (07:56)
[2023-02-03] MEDS ORDERED: Lactated Ringers 1,000 ML IV ONE (07:56)
[2023-02-03] MEDS ORDERED: Transderm Scop 1.5MG Patch ONE (07:56)
[2023-02-03] MEDS ORDERED: Lactated Ringers 1,000 ML IV SCH (08:00)
[2023-02-03] MEDS ORDERED: CEFAZOLIN 2 GM-D5W BAG** 2 GM/50 ML ML IV SCH (08:00)
[2023-02-03 08:03] LABS: HCG URINE TEST NEGATIVE (NEGATIVE)
[2023-02-03] MEDS ORDERED: DIPRIVAN 200 MG/20 ML IV ONE (08:59)
[2023-02-03] MEDS ORDERED: SUBLIMAZE 100 MCG/2 ML ONE ×3 (08:59→10:15)
[2023-02-03] MEDS ORDERED: Xylocaine-Mpf 2% 5 Ml Vial ONE (08:59)
[2023-02-03] MEDS ORDERED: Versed 2 MG/2 ML Injection ONE (08:59)
[2023-02-03] MEDS ORDERED: Decadron 4 MG INJ ONE (08:59)
[2023-02-03] MEDS ORDERED: Zofran 4 MG/2 ML VIAL ONE (08:59)
[2023-02-03] MEDS ORDERED: Hydromorphone 1 mg/ml Injection ONE (10:08)
[2023-02-03] MEDS ORDERED: Dextrose 5%-Lr IV Solution 1000 ML 1,000 ML IV ONE (10:12)
[2023-02-03] MEDS ORDERED: MORPHINE SULFATE 10 MG/ML ONE (10:17)
[2023-02-03] MEDS ORDERED: Compazine 10 MG/2 ML ONE (10:36)
[2023-02-03 10:52] VITALS: TEMP 97.5
[2023-02-03 11:30] VITALS: BP 116/69; PULSE 80; O2SAT 97
--- NOTE | 2023-02-05 10:41 | OP ---
SURGERY DATE/TIME: 02/03/2023920 PREOPERATIVE DIAGNOSIS: Abnormal uterine bleeding. POSTOPERATIVE DIAGNOSIS: Abnormal uterine bleeding. PROCEDURE: Hysteroscopy D&C with endometrial ablation. SURGEON: Vlad Medeiros D.O. TRACK LAYING SUPERVISOR: Asha Gagnon surgical instrument technician. ANESTHESIA: General. ESTIMATED BLOOD LOSS: Minimal. COMPLICATIONS: None. INDICATIONS: The risks, benefits, indications and alternatives of the procedure were reviewed with the patient prior to procedure. The patient understood the risk of infection, bleeding, bowel injury, bladder injury, uterine perforation, pelvic infection associated with this surgery and desires to have this surgery as a possible means to alleviate her current medical condition. DESCRIPTION OF PROCEDURE AND FINDINGS: At this point the patient is taken to the operating room, given general sedation, placed in dorsal lithotomy position, prepped and draped in the usual sterile fashion. A weighted speculum is then placed into the vagina and the anterior lip of the cervix is grasped with a single tooth tenaculum. Endocervical dilators were advanced through the endocervical canal as a means to dilate the cervix and a 5 mm hysteroscope was then placed in through the endocervical region toward the fundal region where visualization of the endometrial cavity appeared to be within normal limits with no gross abnormalities that were noted. From this point the hysteroscope was removed and the curette was then placed in the fundus of the uterus and curettage was performed in all quadrants of the uterus retrieving a mild to moderate amount of tissue. From this point hemostasis was obtained. The curette was then removed from the patient's vaginal region. At this point, the NovaSure was taken through the endocervical region towards the fundal region retracted approximately 1 cm where it was engaged with a length of 6.5 cm and a width of 3.7 cm where the machine was turned on after engagement and an ablative time of 38 seconds was obtained. After complete ablation, the NovaSure was then disengaged and removed from the uterine cavity without complication. From this point, all instruments were removed from the patient's vaginal region. The patient was then taken out of the dorsal lithotomy position and was taken out of anesthesia and was then taken to the recovery room in stable condition. All instruments and laps were accounted for x2.
== END 2023-02-03 11:29 | disposition home or self-care (01) ==
LOC: SDC 07:21
PROVIDERS: ATTEND Obstetrics & Gynecology
DX: N93.9 Abnormal uterine and vaginal bleeding, unspecified (principal)
CPT/HCPCS: 81025; J0690; J1100; J1170; J2250; J2270; J2405; J2704; J3010; A9270-GY